=== PATIENT | male | born 1950 | race Caucasian/White ===

== ENCOUNTER 2023-04-02 07:31 | Inpatient (IN) ==
--- NOTE | 2023-04-02 07:57 | Emergency Department Note ---
ED Provider Note History of Present Illness Chief Complaint: Infection Stated Complaint: INFECTION ON LEFT FOOT NOT RESPONDING TO MEDS Time Seen by Provider: 04/02/23 07:38 Source: patient Mode of arrival: ambulatory Limitations: no limitations This patient is a 73-year-old male who presents to the emergency department for evaluation of an infection in his left second toe. Patient has been dealing with this for over 2 weeks. He states that he initially had a blister on the toe which he peeled off and then it became infected. He saw his PCP and was put on doxycycline, which he has been taking since then. He first had an x-ray and then an MRI, which showed osteomyelitis. They wanted to set him up with orthopedics or podiatry and he was able to make a podiatry appointment with Dr. Awad in [place] for this coming . However, patient and his state that today the toe seems to be more red and swollen and they were not comfortable waiting until this appointment. Patient denies any fever/chills or systemic symptoms. He has chronic neuropathy of his lower extremities. He is prediabetic. He denies any pain other than the normal pain from his neuropathy. He does have a history of DVT in the left lower extremity and is anticoagulated on Coumadin. Home Medications Medication Instructions Recorded Confirmed Type atenolol 100 mg tablet 100 mg PO DAILY 04/02/23 04/02/23 History gabapentin 300 mg capsule 300 mg PO DAILY 04/02/23 04/02/23 History hydrochlorothiazide 25 mg tablet 25 mg PO DAILY 04/02/23 04/02/23 History levothyroxine 137 mcg tablet 137 mcg PO DAILY 04/02/23 04/02/23 History warfarin 5 mg tablet 5 mg PO SUMOTUTHFRSA 04/02/23 04/02/23 History warfarin 5 mg tablet 7.5 mg PO WE 04/02/23 04/02/23 History Allergies Allergy/AdvReac Type Severity Reaction Status Date / Time No Known Allergies Allergy Unknown Unverified 11/16/03 06:48 Past Med/Surg History Medical History History of DVT (deep vein thrombosis) Hypertension Hypothyroidism Leukopenia Neuropathy Pre-diabetes Thrombocytopenia Surgical History History of appendectomy History of ventral hernia repair Social History Smoking Status: Former smoker Tobacco Type: Cigarettes Do You Dip or Chew Tobacco: No; Hx Alcohol Use: Yes Alcohol type: hard liquor Alcohol type Comment: 2 drink s/day Hx Substance Use: No Preferred Language: Kyrgyz Communication Ability: Effective Land Clearer Required: No Beliefs That Will Affect Care: None Current Living Situation: Spouse Other Information That Helps Us Care for You: No Feels Safe at Home: Yes Safety Concerns: Feels Safe At This Time Assistive Devices: None Physical Exam Vital Signs Vital Signs - 24 hr 04/02/23 07:34 04/02/23 07:56 04/02/23 08:04 Temperature 36.6 C Temperature Source Temporal Artery Scan Pulse Rate 48 L 48 L Pulse Rate from SpO2 Sensor Respiratory Rate 16 Blood Pressure 144/77 H Blood Pressure Mean 99 Pulse Oximetry 97 98 Oxygen Delivery Method Room Air Sepsis Recent Fever Within 48 Hours No Sepsis New/Unexplained Change in Mental Status N/A Sepsis Action Taken by Nursing No Action Required 04/02/23 07:55 04/02/23 08:00 04/02/23 08:00 Temperature Temperature Source Pulse Rate 49 L 49 L Pulse Rate from SpO2 Sensor 49 L 49 L Respiratory Rate 20 15 Blood Pressure 136/74 134/71 134/71 Blood Pressure Mean 94 88 92 Pulse Oximetry 96 96 Oxygen Delivery Method Room Air Room Air Sepsis Recent Fever Within 48 Hours Sepsis New/Unexplained Change in Mental Status Sepsis Action Taken by Nursing 04/02/23 08:30 04/02/23 09:00 04/02/23 09:30 Temperature Temperature Source Pulse Rate 46 L 46 L 44 L Pulse Rate from SpO2 Sensor 46 L 46 L 45 L Respiratory Rate 17 19 17 Blood Pressure 127/77 132/78 122/77 Blood Pressure Mean 93 96 92 Pulse Oximetry 98 95 96 Oxygen Delivery Method Room Air Room Air Room Air Sepsis Recent Fever Within 48 Hours Sepsis New/Unexplained Change in Mental Status Sepsis Action Taken by Nursing 04/02/23 10:00 Temperature Temperature Source Pulse Rate 45 L Pulse Rate from SpO2 Sensor 45 L Respiratory Rate 19 Blood Pressure 141/80 H Blood Pressure Mean 100 Pulse Oximetry 96 Oxygen Delivery Method Room Air Sepsis Recent Fever Within 48 Hours Sepsis New/Unexplained Change in Mental Status Sepsis Action Taken by Nursing VITALS: Vitals are noted on the nurse's note and reviewed by myself. GENERAL: This is a 73-year-old male, in no acute distress, well-developed well- nourished. EYES: Pupils equal round and reactive to light and accommodation. MOUTH: Mucous membranes moist. HEART: Regular rate and rhythm without murmurs gallops or rubs. LUNGS: Clear to auscultation bilaterally without wheezes, rales or rhonchi. EXTREMITIES: The left second toe is diffusely edematous with an erythematous/purple discoloration. There is an ulceration to the distal aspect of the toe. NEURO: Patient was alert and oriented to person place and time. Decreased tensile sensation over the lower extremities. Course Administered Medications Discontinued Medications Cefepime HCl (Maxipime) 2,000 mg in 20 mls @ 5 mls/min IV NOW STA Stop: 04/02/23 09:15 Last Admin: 04/02/23 09:57 Dose: 5 mls/min Documented By: ISIAH Vancomycin HCl 2,000 mg/ (Sodium Chloride) 540 mls @ 200 mls/hr IV NOW ONE Stop: 04/02/23 11:53 Last Admin: 04/02/23 10:09 Dose: 200 mls/hr Documented By: ISIAH Medical Decision Making Differential Diagnosis Differential diagnosis includes cellulitis, abscess, osteomyelitis, among others. Medical Records Attestation: I reviewed the patient's medical records. Additional Comments: [facility] records reviewed - MRI shows osteomyelitis Home Medications was personally reviewed by me Laboratory Data Attestation: I reviewed the patient's lab results. 04/02/23 07:52 04/02/23 07:52 Lab Results 04/02/23 04/02/23 04/02/23 Range/Units 07:52 07:52 07:52 WBC 3.84 L (4.8-10.8) K/ul RBC 4.04 L (4.70-6.10) M/uL Hgb 14.0 (14.0-18.0) g/dl Hct 39.7 L (42.0-52.0) % MCV 98.3 (80.0-100.0) fL MCH 34.7 H (25.0-34.0) pg MCHC 35.3 (32.0-36.0) g/dL RDW Std Deviation 46.6 H (36.4-46.3) fL RDW Coeff of Kathleen 13.0 (11.5-14.5) % Plt Count 126 L (130-400) K/uL MPV 10.1 (9.4-12.4) fL Immature Gran % (Auto) 0.3 % Neut % (Auto) 59.6 % Lymph % (Auto) 22.9 % Nobles % (Auto) 14.8 % Eos % (Auto) 2.1 % Baso % (Auto) 0.3 % Neut # (Auto) 2.29 (1.40-6.50) K/uL Lymph # (Auto) 0.88 L (1.2-3.4) K/uL Nobles # (Auto) 0.57 (0.11-0.59) K/uL Eos # (Auto) 0.08 (0-0.50) K/uL Baso # (Auto) 0.01 (0-0.2) K/uL Immature Gran # (Auto) 0.01 (0.01-0.20) K/uL PT 21.6 H (9.0-12.0) Seconds INR 2.1 H (0.9-1.1) Sodium 135 L (136-145) mmol/L Potassium 3.9 (3.5-5.1) mmol/L Chloride 102 (98-107) mmol/L Carbon Dioxide 26 (21-32) mmol/L Anion Gap 7 (3-11) BUN 17 (6-23) mg/dl Creatinine 1.24 (0.6-1.4) mg/dl Est Cr Clr Drug Dosing 63.0 ml/min Est GFR ( Amer) 65.5 ml/min Est GFR (Non-Af Amer) 56.5 ml/min BUN/Creatinine Ratio 13.7 (10-20) Glucose 136 H (70-99(Fasting)) mg/dl Lactate (0.4-2.0) mmol/L Calcium 8.8 (8.6-10.3) mg/dl Total Bilirubin 0.8 (0.2-1.0) mg/dl AST 28 (13-39) U/L ALT 21 (7-52) U/L Alkaline Phosphatase 57 (34-104) U/L C-Reactive Protein 2.44 H (0-0.5) mg/dl Total Protein 7.0 (6.0-8.3) gm/dl Albumin 3.9 (3.4-5.0) gm/dl Globulin 3.1 (2.5-4.0) gm/dl Albumin/Globulin Ratio 1.3 (0.9-2) SARS-CoV-2, RNA, NAAT (NEGATIVE) 04/02/23 04/02/23 Range/Units 07:53 07:56 WBC (4.8-10.8) K/ul RBC (4.70-6.10) M/uL Hgb (14.0-18.0) g/dl Hct (42.0-52.0) % MCV (80.0-100.0) fL MCH (25.0-34.0) pg MCHC (32.0-36.0) g/dL RDW Std Deviation (36.4-46.3) fL RDW Coeff of Kathleen (11.5-14.5) % Plt Count (130-400) K/uL MPV (9.4-12.4) fL Immature Gran % (Auto) % Neut % (Auto) % Lymph % (Auto) % Nobles % (Auto) % Eos % (Auto) % Baso % (Auto) % Neut # (Auto) (1.40-6.50) K/uL Lymph # (Auto) (1.2-3.4) K/uL Nobles # (Auto) (0.11-0.59) K/uL Eos # (Auto) (0-0.50) K/uL Baso # (Auto) (0-0.2) K/uL Immature Gran # (Auto) (0.01-0.20) K/uL PT (9.0-12.0) Seconds INR (0.9-1.1) Sodium (136-145) mmol/L Potassium (3.5-5.1) mmol/L Chloride (98-107) mmol/L Carbon Dioxide (21-32) mmol/L Anion Gap (3-11) BUN (6-23) mg/dl Creatinine (0.6-1.4) mg/dl Est Cr Clr Drug Dosing ml/min Est GFR ( Amer) ml/min Est GFR (Non-Af Amer) ml/min BUN/Creatinine Ratio (10-20) Glucose (70-99(Fasting)) mg/dl Lactate 1.7 (0.4-2.0) mmol/L Calcium (8.6-10.3) mg/dl Total Bilirubin (0.2-1.0) mg/dl AST (13-39) U/L ALT (7-52) U/L Alkaline Phosphatase (34-104) U/L C-Reactive Protein (0-0.5) mg/dl Total Protein (6.0-8.3) gm/dl Albumin (3.4-5.0) gm/dl Globulin (2.5-4.0) gm/dl Albumin/Globulin Ratio (0.9-2) SARS-CoV-2, RNA, NAAT NEGATIVE (NEGATIVE) MDM Narrative Continuous cable layer: Order was placed for continuous cable layer. Patient was placed on the cable layer. Patient was noted to be in sinus bradycardia at an initial rate of 47 bpm. The patient is a 73-year-old male who presents today complaining of pain and swelling in his left second toe. The toe is diffusely edematous with some erythema extending up onto the foot. He had an outpatient MRI which showed osteomyelitis. Patient has been on 2 weeks of antibiotics with worsening symptoms. At this time I do feel that he warrants admission. His labs are unremarkable, elevated CRP consistent with infection. Lactate is not elevated. Patient was given initial doses of cefepime and [facility]comycin [facility] Impression Osteomyelitis of second toe of left foot Discharge Plan Visit Data Chief Complaint: Infection Stated Complaint: INFECTION ON LEFT FOOT NOT RESPONDING TO MEDS ED Provider: Mary Concepcion ED Midlevel Provider: Lamar Schmidt Discharge Problem: Osteomyelitis of second toe of left foot Patient Disposition: Admitted As Inpatient Discharge Instructions Interventions: ED Discharge Assessment Last Done: 04/02/23 11:15
[2023-04-02 08:20] LABS: Basophils # (auto) 0.01 K/uL (0-0.2); Basophils % (auto) 0.3 %; Eosinophils # (auto) 0.08 K/uL (0-0.50); Eosinophils % (auto) 2.1 %; Hematocrit (blood only) 39.7 % (42.0-52.0); Immature Granulocytes # (auto) 0.01 K/uL (0.01-0.20); Immature Granulocytes % (auto) 0.3 %; Lymphocytes # (auto) 0.88 K/uL (1.2-3.4); Lymphocytes % (auto) 22.9 %; Mean Corpuscular Hemoglobin 34.7 pg (25.0-34.0); Mean Corpuscular Hgb Conc 35.3 g/dL (32.0-36.0); Mean Corpuscular Volume 98.3 fL (80.0-100.0); Mean Platelet Volume 10.1 fL (9.4-12.4); Monocytes # (auto) 0.57 K/uL (0.11-0.59); Monocytes % (auto) 14.8 %; Neutrophils # (auto) 2.29 K/uL (1.40-6.50); Neutrophils % (auto) 59.6 %; Platelet Count 126 K/uL (130-400); RDW Standard Deviation 46.6 fL (36.4-46.3); Red Blood Count 4.04 M/uL (4.70-6.10); White Blood Count 3.84 K/ul (4.8-10.8)
[2023-04-02 08:34] LABS: Albumin Globulin Ratio 1.3 (0.9-2); Albumin Level 3.9 gm/dl (3.4-5.0); BUN Creatinine Ratio 13.7 (10-20); Bilirubin,Total 0.8 mg/dl (0.2-1.0); C Reactive Protein 2.44 mg/dl (0-0.5); Calcium 8.8 mg/dl (8.6-10.3); Est GFR (African American) 65.5 ml/min; Est GFR (Non-African American) 56.5 ml/min; Globulin 3.1 gm/dl (2.5-4.0); Potassium 3.9 mmol/L (3.5-5.1)
[2023-04-02 08:48] LABS: INR 2.1 (0.9-1.1); Prothrombin Time 21.6 Seconds (9.0-12.0)
[2023-04-02] MEDS ORDERED: VANCOMYCIN HCL 2,000 MG in SODIUM CHLORIDE 0.9% 500 ML IV ONE (09:12)
[2023-04-02] MEDS ORDERED: CEFEPIME 2,000 MG/20 ML VIAL IV STA (09:12)
[2023-04-02] MEDS ORDERED: VANCOMYCIN CONSULT ACTIVE PRN (09:12)
--- NOTE | 2023-04-02 11:48 | History & Physical Report ---
Date of Service April 02, 2023 Assessment & Plan (1) Osteomyelitis: Plan: Admit to [facility] Patient presenting from home for evaluation of worsening left toe wound, redness, swelling. Patient seen by PCP on 03/21 and placed on doxycycline. Seen in follow-up on 03/23 and MRI was ordered. Left foot MRI performed 03/26/2023 showing findings consistent with osteomyelitis of the 2nd distal phalanx, also involving the 2nd middle phalanx to a lesser degree. Consults were made with infectious disease and orthopedics. It was advised that patient see podiatry for wound debridement and/or amputation. Due to increased redness and swelling, patient presented to the ED today prior to podiatry appointment on 04/04. Patient currently afebrile, hemodynamically stable, does not appear septic. Outpatient wound culture grew coag negative staph S/p Vanco and cefepime in the ED, continue with both Podiatry consult, Dr. Jean-Baptiste notified via [facility] Text ID consult (2) Bradycardia: Plan: EKG shows a sinus bradycardia, rate 50 with first-degree block Review of outpatient vitals show the patient's heart rate chronically is in the 40s-50s Will reduce atenolol to 50 mg daily Follow-up EKG in the a.m. (3) Leukopenia: (4) Thrombocytopenia: Plan: History of chronic leukopenia and thrombocytopenia, follows with hematology Dr. Nicole Platelet count stable today at 126K Reviewed antiplatelet antibody panel from 07/[address] 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 -- ok to receive heparin products if needed (5) Neuropathy: Plan: Continue gabapentin (6) History of DVT (deep vein thrombosis): Plan: On Coumadin, INR 2.1 History of DVT in 2014 Will hold Coumadin due to anticipated surgical procedure, no indication for bridging at this time (7) Hypertension: Plan: Continue HCTZ Reducing atenolol dosing as above (8) Pre-diabetes: Plan: Hgb A1c 6.0 02/2023 Glucose 136 on today's labs Monitor glucose on daily labs, provide Novolog if needed (9) Hypothyroidism: Plan: Continue levothyroxine DVT PROPHYLAXIS On Coumadin with INR 2.1, SCDs when INR < 2.0 Patient seen in collaboration with Dr. Kaur. I spent a total of 75 minutes coordinating, documenting, and providing care for this patient excluding time spent in the performance of separately billed services. This included personally reviewing all current laboratories and imaging studies, medication reconciliation, outpatient chart review, and discussion with specialists. History of Present Illness Chief Complaint: Left toe wound Primary Care Provider: Salima Arevalo PA-C 73-year-old male with PMH hypothyroidism, prediabetes, HTN, peripheral neuropathy, chronic thrombocytopenia and leukopenia, history of DVT anticoagulated on Coumadin, and other problems listed below who presents to the ED for evaluation of a left toe wound. History obtained from the patient and review of outpatient PCP and hematology records. Patient states that about 2 weeks ago, he developed a blister or callus on the bottom of his left second toe. Patient states that he peeled the skin off of the bottom of his left second toe. Then developed increased redness and swelling. Patient seen by PCP on 03/21 and placed on doxycycline. Seen in follow-up on 03/23 and MRI was ordered. Left foot MRI performed 03/26/2023 showing findings consistent with osteomyelitis of the 2nd distal phalanx, also involving the 2nd middle phalanx to a lesser degree. Consults were made with infectious disease and orthopedics. It was advised that patient see podiatry for wound debridement and/or amputation. Due to increased redness and swelling, patient presented to the ED today prior to podiatry appointment on 04/04. Patient reports chronic neuropathy to both feet. History of prediabetes. He denies fevers and chills. No chest pain or shortness of breath. Denies lightheadedness, dizziness, diaphoresis, syncopal events. No abdominal pain, nausea, vomiting, diarrhea. Denies urinary symptoms. In the ED today, patient is hemodynamically stable. Labs show mild leukopenia and thrombocytopenia, WBC 3.8K platelet 126K. Patient was given IV cefepime and IV Vanco. Allergies Allergy/AdvReac Type Severity Reaction Status Date / Time No Known Allergies Allergy Unknown Unverified 11/16/03 06:48 Home Medications Medication Instructions Recorded Confirmed Type atenolol 100 mg tablet 100 mg PO DAILY 04/02/23 04/02/23 History gabapentin 300 mg capsule 300 mg PO DAILY 04/02/23 04/02/23 History hydrochlorothiazide 25 mg tablet 25 mg PO DAILY 04/02/23 04/02/23 History levothyroxine 137 mcg tablet 137 mcg PO DAILY 04/02/23 04/02/23 History warfarin 5 mg tablet 5 mg PO RADHATNELLY 04/02/23 04/02/23 History warfarin 5 mg tablet 7.5 mg PO WE 04/02/23 04/02/23 History Past Med/Surg History Medical History History of DVT (deep vein thrombosis) Hypertension Hypothyroidism Leukopenia Neuropathy Pre-diabetes Thrombocytopenia Surgical History History of appendectomy History of ventral hernia repair Social History Smoking Status: Former smoker Tobacco Type: Cigarettes Do You Dip or Chew Tobacco: No; Hx Alcohol Use: Yes Alcohol type: hard liquor Alcohol type Comment: 2 drinks/day Hx Substance Use: No Preferred Language: Syriac Communication Ability: Effective Jacker Feeder Required: No Beliefs That Will Affect Care: None Current Living Situation: Spouse Other Information That Helps Us Care for You: No Feels Safe at Home: Yes Safety Concerns: Feels Safe At This Time Assistive Devices: None Review of Systems Review of Systems: ROS per HPI, all other systems reviewed and negative Physical Exam Constitutional: WD/WN, vitals as above no acute distress ENMT: external ear and nose normal, oropharynx normal Respiratory: normal respiratory effort, lungs clear to auscultation Cardiovascular: Rate/Rhythm: regular rhythm and + bradycardic Vessels: normal peripheral pulses Extremities: + edema (+2 edema LLE) Gastrointestinal (Abdomen): normal bowel sounds, soft, nontender, no hepatosplenomegaly Musculoskeletal: no cyanosis or clubbing, extremities motor strength 5/5 Skin: no rashes, warm and dry open wound noted to end of left 2nd toe with some bloody drainage present, associated erythema and edema Neurologic: PERRL, EOMI, accommodation nl, no face palsy, no dysarthria Psychiatric: A+Ox3, euthymic affect Results & Data Results & Data Vital Signs (Past 12 Hours) Vital Signs Temp Pulse Resp BP Pulse Ox O2 Del Method 04/02/23 11:00 45 L 15 131/77 96 Room Air 04/02/23 10:30 45 L 21 153/84 H 97 Room Air 04/02/23 10:00 45 L 19 141/80 H 96 Room Air 04/02/23 09:30 44 L 17 122/77 96 Room Air 04/02/23 09:00 46 L 19 132/78 95 Room Air 04/02/23 08:30 46 L 17 127/77 98 Room Air 04/02/23 08:00 49 L 15 134/71 96 Room Air 04/02/23 08:00 134/71 04/02/23 07:55 49 L 20 136/74 96 Room Air 04/02/23 08:04 98 Room Air 04/02/23 07:56 48 L 04/02/23 07:34 36.6 C 48 L 16 144/77 H 97 Laboratory Results Short CBC 04/02/23 Range/Units 07:52 WBC 3.84 L (4.8-10.8) K/ul Hgb 14.0 (14.0-18.0) g/dl Hct 39.7 L (42.0-52.0) % Plt Count 126 L (130-400) K/uL BMP 04/02/23 07:52 Sodium 135 L Potassium 3.9 Chloride 102 Carbon Dioxide 26 BUN 17 Creatinine 1.24 Glucose 136 H Calcium 8.8 Liver Function 04/02/23 Range/Units 07:52 Total Bilirubin 0.8 (0.2-1.0) mg/dl AST 28 (13-39) U/L ALT 21 (7-52) U/L Alkaline Phosphatase 57 (34-104) U/L Albumin 3.9 (3.4-5.0) gm/dl Diagnostic Findings Left foot MRI performed at [facility] on 03/26/2023: FINDINGS Diffuse enhancing bone marrow edema throughout the distal phalanx of the 2nd toe, with loss T1 marrow signal intensity. These findings are also seen in the middle phalanx to a lesser degree. Appearance is consistent with osteomyelitis. There is also apparent high signal intensity in the distal phalanx of the 3rd toe on the fat-saturated sequences. There is no signal abnormality in the marrow on the STIR sequence, nor is there appreciable loss of T1 marrow signal. As such, this is most likely related to inhomogeneous fat saturation. Diffuse fatty atrophy of the intrinsic forefoot musculature. No discrete fluid collection/abscess. Visualized tendons are grossly intact. IMPRESSION IMPRESSION Findings consistent with osteomyelitis of the 2nd distal phalanx, also involving the 2nd middle phalanx to a lesser degree. Supervising Physician Co-Signing Physician Notes I have seen and examined the patient and have discussed the case with the provider above. I agree with the assessment and plan as stated with the following exceptions. 73 yo M presents for treatment of osteomyelitis of the left foot. His left lower leg his more swollen and warm to touch when compared wtih the right despite recent outpatient doxycycline. He is not septic and denies any pain 2/2 chronic neuropathy. He reports two weeks ago pulling off a piece of skin which subsequently became infected. He was treated with 10 days of doxycycline and topical silver and two days later on following, there was improvement. However, the x-ray from 03/21 revealed possible osteomyelitis so an MRI was ordered and performed 03/26 revealing osteomyelitis of the second distal phalanx, also involving the second middle phalynx to a lesser degree. An outpatient ID chart review was performed with recommendation to refer for amputation iof the to as antibiotic therapy without amputation was thought to be likely to fail. He has been started on IV vancomycin and IV cefepime in the ER. Hemodynamically stable and afebrile in NAD. WNWD and mentating clearly. CV exam reveals S1/2 heard without murmurs, regular rate and rhythm heard. Lungs CTAB. Abdomen soft NTND. Workup reveals leukopenia 3.84, PLT 126, INR 2.1, Chem panel WNL and CRP 2.44. CXR reveals no acute process. Blood cultures are pending. EKG reveals sinus bradycardia with 1AVB. 1. Left toe osteomyelitis 2. Sinus bradycardia 3. ITP 4. chronic anticoagulation, h/o dVT Admit to medicine and consult ID and podiatry. Start Vanc/cefepime for now. Defer bone biopsy to podiatry. Blood cultures pending. Agree with de- escalating atenolol. Holding coumadin given upcoming procedure. Sindy [facility]aur [facility]
--- NOTE | 2023-04-02 12:02 | XRay Report ---
XR chest 1V portable HISTORY: 73 years-old Male pre op preoperative exam. No acute chest complaints COMPARISON: CT abdomen and pelvis 08/08/2020 TECHNIQUE: AP view of the chest FINDINGS: Cardiac silhouette is mildly enlarged. No pneumothorax, pleural effusion, airspace consolidation or p ulmonary edema. Degenerative changes of the shoulders and spine. IMPRESSION: No acute process. ACT 112: Negative or not required by law. The above report was generated using voice recognition software. It may contain grammatical, syntax o r spelling errors. Electronically signed by: Beni Olsen M.D. 04/02/2023 12:00 PM
--- NOTE | 2023-04-02 12:12 | Communication Note ---
Date of Service: April 02, 2023 ATTENDING ADDENDUM: 73 yo M presents for treatment of osteomyelitis of the left foot. His left lower leg his more swollen and warm to touch when compared wtih the right despite recent outpatient doxycycline. He is not septic and denies any pain 2/2 chronic neuropathy. He reports two weeks ago pulling off a piece of skin which subsequently became infected. He was treated with 10 days of doxycycline and topical silver and two days later on following, there was improvement. However, the x-ray from 03/21 revealed possible osteomyelitis so an MRI was ordered and performed 03/26 revealing osteomyelitis of the second distal phalanx, also involving the second middle phalynx to a lesser degree. An outpatient ID chart review was performed with recommendation to refer for amputation iof the to as antibiotic therapy without amputation was thought to be likely to fail. He has been started on IV vancomycin and IV cefepime in the ER. Hemodynamically stable and afebrile in NAD. WNWD and mentating clearly. CV exam reveals S1/2 heard without murmurs, regular rate and rhythm heard. Lungs CTAB. Abdomen soft NTND. Workup reveals leukopenia 3.84, PLT 126, INR 2.1, Chem panel WNL and CRP 2.44. CXR reveals no acute process. Blood cultures are pending. EKG reveals sinus bradycardia with 1AVB. 1. Left toe osteomyelitis 2. Sinus bradycardia 3. ITP 4. chronic anticoagulation, h/o dVT Admit to medicine and consult ID and podiatry. Start Vanc/cefepime for now. Defer bone biopsy to podiatry. Blood cultures pending. Agree with de-escalatin g atenolol. Holding coumadin given upcoming procedure. Sindy Kaur DO [facility]
[2023-04-02] MEDS ORDERED: ACETAMINOPHEN 325 MG TAB PO PRN (12:19)
--- NOTE | 2023-04-02 13:52 | Pharmacy Report ---
Pharmacy PK ABX Note - Date of Service April 02, 2023 - Assessment and Plan Assessment 73 year old M receiving vancomycin/cefepime for treatment of osteomyelitis. Pertinent microbiologic data includes: blood and toe culture currently pending. Day # 1 of antimicrobial therapy. Plan Vancomycin * Loading dose: 2000 mg IV x 1 * Maintenance dose: 1500 mg IV every 18 hours * Regimen is predicted to achieve target AUC/BRITTNEY of 400-600 mg/L.hr * Trough level ordered for: 04/04/23 Pharmacy will continue to follow and will adjust dose/frequency as necessary. Thank you. Pharmacy has transitioned to AUC monitoring for vancomycin. AUC/BRITTNEY is the preferred PK/PD target and is associated with decreased risk of nephrotoxicity compared to traditional trough targets.
--- NOTE | 2023-04-02 14:33 | Electrocardiogram Report ---
Test Reason : Blood Pressure : / mmHG Vent. Rate : 050 BPM Atrial Rate : 050 BPM P-R Int : 260 ms QRS Dur : 078 ms QT Int : 432 ms P-R-T Axes : 080 -22 018 degrees QTc Int : 393 ms Sinus bradycardia with 1st degree A-V block Otherwise normal ECG No previous ECGs available Confirmed by Kishan Tompkins ([id number]) on 04/02/2023 12:08:24 PM Referred By: REFERRED SELF Confirmed By:Heber Tompkins
[2023-04-02] MEDS: CEFEPIME 2,000 MG in SYRINGE 0 ML IV SCH (17:16)
[2023-04-02] MEDS: VANCOMYCIN HCL 1,500 MG in SODIUM CHLORIDE 0.9% 500 ML IV SCH (20:11)
--- NOTE | 2023-04-02 22:38 | Orthopedic Consultation ---
Date of Consultation April 02, 2023 Assessment & Plan (1) Osteomyelitis of second toe of left foot: Patient seen, evaluated, and treated Reviewed with Patient MRI results. I was unable to review MRI images as of 04/02/23 and still awaiting file transfer Patient is electing for definitive care with amputation of left second toe at this time. Coumadin will be discontinued for anticipated left second toe amputation on 04/04/23. Will continue to discuss planned procedure with Patient and as Patient does admit to anxiety about procedure. Thank you for allowing me to participate in the care of this Patient. (2) Osteomyelitis: History of Present Illness Attending Physician: Sindy Kaur, DO History of Present Illness Patient is a type II diabetic, 73-year-old male who is seen at bedside for left second toe osteomyelitis. Patient has a past medical history significant for hypothyroidism, prediabetes, HTN, peripheral neuropathy, chronic thrombocytopenia and leukopenia, history of DVT anticoagulated on Coumadin. Patient states that about 2 weeks ago, he developed a blister or callus on the bottom of his left second toe. Patient states that he peeled the skin off of the bottom of his left second toe. Then developed increased redness and swelling. Patient seen by PCP on 03/21 and placed on doxycycline. Seen in follow-up on 03/23 and MRI was ordered. Left foot MRI performed 03/26/2023 showing findings consistent with osteomyelitis of the 2nd distal phalanx, also involving the 2nd middle phalanx to a lesser degree. Consults were made with infectious disease and orthopedics. It was advised that patient see podiatry for wound debridement and/or amputation. Due to increased redness and swelling, patient presented to the [facility] ED today prior to podiatry appointment on 04/04. Patient reports chronic neuropathy to both feet. Labs show mild leukopenia and thrombocytopenia, WBC 3.8K platelet 126K. Patient was given IV cefepime and IV Vanco. Allergies Allergy/AdvReac Type Severity Reaction Status Date / Time No Known Allergies Allergy Unknown Unverified 11/16/03 06:48 Home Medications Medication Instructions Recorded Confirmed Type atenolol 100 mg tablet 100 mg PO DAILY 04/02/23 04/02/23 History gabapentin 300 mg capsule 300 mg PO DAILY 04/02/23 04/02/23 History hydrochlorothiazide 25 mg tablet 25 mg PO DAILY 04/02/23 04/02/23 History levothyroxine 137 mcg tablet 137 mcg PO DAILY 04/02/23 04/02/23 History warfarin 5 mg tablet 5 mg PO RADHATJEFFRYSA 04/02/23 04/02/23 History warfarin 5 mg tablet 7.5 mg PO WE 04/02/23 04/02/23 History Patient History Medical History History of DVT (deep vein thrombosis) Hypertension Hypothyroidism Leukopenia Neuropathy Pre-diabetes Thrombocytopenia Surgical History History of appendectomy History of ventral hernia repair Social History Smoking Status: Former smoker Tobacco Type: Cigarettes Do You Dip or Chew Tobacco: No; Hx Alcohol Use: Yes Alcohol type: hard liquor Alcohol type Comment: 2 drinks/day Hx Substance Use: No Preferred Language: Finnish Communication Ability: Effective Licensed Prosthetist Required: No Beliefs That Will Affect Care: None Current Living Situation: Spouse Other Information That Helps Us Care for You: No Feels Safe at Home: Yes Safety Concerns: Feels Safe At This Time Assistive Devices: None Review of Systems Review of Systems: All systems reviewed & are unremarkable except as noted in HPI & below Physical Exam Constitutional: cooperative and comfortable Eyes: normal visual hardwick by confrontation Neck: trachea midline Respiratory: normal respiratory effort Cardiovascular: Rate/Rhythm: regular rate and regular rhythm Vessels: posterior tibial pulses present and dorsalis pedis pulses present Musculoskeletal: Extremities: extremities normal to inspection Skin: + ulcer (Left second distal toe) Neurologic: moves all extremities (Loss of epicritic sensation) Psychiatric: Orientation: alert and oriented x 3 Results & Data Vital Signs (Past 12 Hours) Vital Signs Temp Pulse Pulse Resp BP BP Pulse Ox 04/02/23 20:13 36.7 C 53 L 18 149/78 H 96 04/02/23 15:32 36.9 C 49 L 16 127/71 95 04/02/23 12:21 36.9 C 45 L 16 143/80 H 96 04/02/23 11:00 45 L 15 131/77 96 04/02/23 10:30 45 L 21 153/84 H 97 O2 Del Method 04/02/23 20:13 Room Air 04/02/23 15:32 Room Air 04/02/23 12:21 Room Air 04/02/23 11:00 Room Air 04/02/23 10:30 Room Air
[2023-04-03] MEDS: CEFEPIME 2,000 MG in SYRINGE 0 ML IV SCH ×3 (01:47→18:18)
[2023-04-03] MEDS: LEVOTHYROXINE SODIUM 137 MCG TABLET PO SCH (05:44)
[2023-04-03 07:46] LABS: Hematocrit (blood only) 39.9 % (42.0-52.0); Mean Corpuscular Hemoglobin 34.5 pg (25.0-34.0); Mean Corpuscular Hgb Conc 35.1 g/dL (32.0-36.0); Mean Corpuscular Volume 98.3 fL (80.0-100.0); Mean Platelet Volume 9.9 fL (9.4-12.4); Platelet Count 122 K/uL (130-400); RDW Coefficient of Variation 12.9 % (11.5-14.5); RDW Standard Deviation 46.8 fL (36.4-46.3); Red Blood Count 4.06 M/uL (4.70-6.10); White Blood Count 3.26 K/ul (4.8-10.8)
[2023-04-03 07:55] LABS: BUN Creatinine Ratio 14.4 (10-20); Calcium 8.6 mg/dl (8.6-10.3); Creatinine Clr Calc Pharmacy 66.2 ml/min; Est GFR (African American) 69.5 ml/min; Potassium 4.2 mmol/L (3.5-5.1)
[2023-04-03 08:05] LABS: INR 1.8 (0.9-1.1); Prothrombin Time 19.2 Seconds (9.0-12.0)
[2023-04-03] MEDS: ATENOLOL 50 MG TABLET PO SCH (08:29)
[2023-04-03] MEDS: GABAPENTIN 300 MG CAP PO SCH (08:29)
[2023-04-03] MEDS: hydroCHLOROthiazide 25 MG TAB PO SCH (08:29)
[2023-04-03 12:00] LABS: Lyme Ab IgG w/WB Rflx Negative (Negative); Lyme Ab IgM w/WB Rflx Negative (Negative)
--- NOTE | 2023-04-03 14:32 | Hospitalist Progress Note ---
Date of Service April 03, 2023 Assessment & Plan (1) Osteomyelitis: Plan: This is a 73-year-old male who has significant past medical history of HTN, history of DVT on warfarin, CKD stage III, hypothyroidism, prediabetes, leukopenia and thrombocytopenia who presented to ED secondary to worsening left second toe wound. Patient presenting from home for evaluation of worsening left toe wound, redness, swelling. Patient seen by PCP on 03/21 and placed on doxycycline. Seen in follow-up on 03/23 and MRI was ordered. Left foot MRI performed 03/26/2023 showing findings consistent with osteomyelitis of the 2nd distal phalanx, also involving the 2nd middle phalanx to a lesser degree. Consults were made with infectious disease and orthopedics. It was advised that patient see podiatry for wound debridement and/or amputation. Due to increased redness and swelling, patient presented to the ED today prior to podiatry appointment on 04/04. Outpatient wound culture grew coag negative staph S/p Vanco and cefepime in the ED, continue with both Podiatry consult - plan for amputation tomorrow ID consult pending Consult anesthesia Chest x-ray no acute process; EKG with marked sinus bradycardia first-degree block, 44 bpm, no ST T wave change Patient with documented heart rates in the 40s dating back to October 2021 He is on metoprolol therapy which has been reduced from 100 mg daily to 50 mg daily. It was held this morning due to bradycardia. Patient admits to being able to tolerate up to 4 METS of activity without chest pain or shortness of breath Medically cleared to undergo amputation (2) Bradycardia: Plan: EKG on admit shows a sinus bradycardia, rate 50 with first-degree block Review of outpatient vitals show the patient's heart rate chronically is in the 40s-50s Will reduce atenolol to 50 mg daily Follow-up EKG in this am. noted (3) Leukopenia: (4) Thrombocytopenia: Plan: History of chronic leukopenia and thrombocytopenia, follows with hematology Dr. Nicole Platelet count stable today at 126K Reviewed antiplatelet antibody panel from 07/[address] 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 -- ok to receive heparin products if needed (5) Neuropathy: Plan: Continue gabapentin (6) History of DVT (deep vein thrombosis): Plan: On Coumadin, INR 1.8 today History of DVT in 2015 Will hold Coumadin due to anticipated surgical procedure, no indication for bridging at this time (7) Hypertension: Plan: will hold hctz tomorrow morning for procedure Reducing atenolol dosing as above (8) Pre-diabetes: Plan: Hgb A1c 6.0 02/2023 Glucose 136 on today's labs Monitor glucose on daily labs, provide Novolog if needed (9) Hypothyroidism: Plan: Continue levothyroxine DVT PROPHYLAXIS On Coumadin with INR 1.8, SCD to RLE Patient seen in collaboration with Dr. Kaur. I spent a total of 50 minutes coordinating, documenting, and providing care for this patient excluding time spent in the performance of separately billed services. This included personally reviewing all current laboratories and imaging studies, medication reconciliation, outpatient chart review, and discussion with specialists. Pt was seen and examined in collaboration with Dr. Alarcon, please see addendum Admission and Anticipated Discharge Date Admission Date: April 02, 2023 Supervising Physician Co-Signing Physician Notes Patient seen and examined at bedside as a follow-up of osteomyelitis of second toe of left foot, patient has been afebrile, warfarin on hold, INR 1.8 today, will repeat INR in a.m., for OR tomorrow per podiatry. On exam, patient was sitting up in bed, on room air, left second toe erythema/tenderness with associated with LLE swelling noted, rest of the examination as above.. I have seen and examined the patient and have discussed the case with the provider above. I agree with the assessment and plan as stated. Subjective Patient was seen and examined in room 354-2. F/U OM. CO L foot swelling but denies faviola pain. Has opted to go with amputation. Denies f/c/s, chest pain, sob, n/v/d, abd pain. Review of Systems Review of Systems: All systems reviewed & are unremarkable except as noted in HPI & below Physical Exam Physical Exam: Gen: WD/WN, NAD, A&O x3 HEENT: Normocephalic, atraumatic, conjunctivae moist, sclerae anicteric, mucous membranes moist. Lung: Clear to Auscultation bilaterally, no wheezes/rales/rhonchi Heart: Regular rate, regular rhythm, no murmurs, rubs, or gallops Abdomen: Soft, NT, ND +BS x 4 Extremities: LLE edema, L 2nd toe with discoloration, pedal pulse +1, + ulceration Skin: Warm, no rash, negative turgor. Results & Data Results & Data Vital Signs (Past 12 Hours) Vital Signs Temp Pulse Resp BP Pulse Ox O2 Del Method 04/03/23 08:30 Room Air 04/03/23 07:42 36.7 C 42 L 17 135/75 97 Room Air Laboratory Results Short CBC 04/03/23 Range/Units 07:14 WBC 3.26 L (4.8-10.8) K/ul Hgb 14.0 (14.0-18.0) g/dl Hct 39.9 L (42.0-52.0) % Plt Count 122 L (130-400) K/uL BMP 04/03/23 07:14 Sodium 136 Potassium 4.2 Chloride 105 Carbon Dioxide 26 BUN 17 Creatinine 1.18 Glucose 110 H Calcium 8.6 Medications Administered Current Inpatient Medications Acetaminophen (Acetaminophen 325 Mg Tab) 650 mg PO Q4H PRN PRN Reason: pain/fever Stop: 05/02/23 12:18 Atenolol (Atenolol 50 Mg Tablet) 50 mg PO DAILY MARIAM Stop: 05/03/23 08:59 Last Admin: 04/03/23 08:29 Dose: Not Given Gabapentin (Gabapentin 300 Mg Cap) 300 mg PO DAILY MARIAM Stop: 05/03/23 08:59 Last Admin: 04/03/23 08:29 Dose: 300 mg Hydrochlorothiazide (Hydrochlorothiazide 25 Mg Tab) 25 mg PO DAILY MARIAM Stop: 05/03/23 08:59 Last Admin: 04/03/23 08:29 Dose: 25 mg Cefepime HCl 2,000 mg/ Syringe 20 mls @ 5 mls/min IV Q8H MARIAM; Protocol Stop: 05/14/23 17:59 Last Admin: 04/03/23 11:29 Dose: 5 mls/min Vancomycin HCl 1,500 mg/ (Sodium Chloride) 530 mls @ 200 mls/hr IV Q18H MARIAM; Protocol Stop: 05/14/23 19:59 Last Infusion: 04/02/23 22:50 Dose: Infused Levothyroxine Sodium (Levothyroxine Sodium 137 Mcg Tablet) 137 mcg PO DAILYBB MARIAM Stop: 05/03/23 06:29 Last Admin: 04/03/23 05:44 Dose: 137 mcg Miscellaneous Information (Vancomycin Consult Active) 1 each N/A UD PRN PRN Reason: Consult Stop: 05/02/23 09:11
[2023-04-03] MEDS: VANCOMYCIN HCL 1,500 MG in SODIUM CHLORIDE 0.9% 500 ML IV SCH (15:12)
--- NOTE | 2023-04-03 22:08 | Orthopedic Progress Note ---
Date of Service April 03, 2023 Assessment & Plan (1) Osteomyelitis of second toe of left foot: Plan: Patient seen, evaluated, and treated Patient has opted for left second toe amputation. Left foot MRI performed 03/26/2023 showing findings consistent with osteomyelitis of the 2nd distal phalanx, also involving the 2nd middle phalanx to a lesser degree. Surgical care is scheduled for 04/04/23 Thank you for allowing me to participate in the care of this Patient. (2) Osteomyelitis: Admission and Anticipated Discharge Date Admission Date: April 02, 2023 Subjective Patient seen and examined at bedside. Patient's is present. Patient has no complaints. Review of Systems Review of Systems: All systems reviewed & are unremarkable except as noted in Subjective Physical Exam Constitutional: cooperative and comfortable Eyes: normal visual hardwick by confrontation Neck: trachea midline Respiratory: normal respiratory effort Cardiovascular: Rate/Rhythm: regular rate and regular rhythm Vessels: posterior tibial pulses present and dorsalis pedis pulses present Musculoskeletal: Extremities: extremities normal to inspection Skin: + ulcer (Left second distal toe) Neurologic: moves all extremities (Loss of epicritic sensation) Psychiatric: Orientation: alert and oriented x 3 Results & Data Vital Signs (Past 12 Hours) Vital Signs Temp Pulse Resp BP Pulse Ox O2 Del Method 04/03/23 14:44 36.5 C 57 L 16 139/72 95 Room Air
[2023-04-04] MEDS: CEFEPIME 2,000 MG in SYRINGE 0 ML IV SCH ×3 (01:53→17:47)
[2023-04-04] MEDS: LEVOTHYROXINE SODIUM 137 MCG TABLET PO SCH (05:24)
[2023-04-04] MEDS ORDERED: VANCOMYCIN LEVEL ONE (07:30)
[2023-04-04] MEDS: VANCOMYCIN HCL 1,500 MG in SODIUM CHLORIDE 0.9% 500 ML IV SCH (08:32)
[2023-04-04] MEDS: hydroCHLOROthiazide 25 MG TAB PO SCH (08:36)
--- NOTE | 2023-04-04 09:22 | Pharmacy Report ---
Pharmacy PK ABX Note - Date of Service April 04, 2023 - Assessment and Plan Assessment 73 year old M receiving vancomycin/cefepime for treatment of L foot osteomyelitis. Left second toe amputation planned for today. Toe culture (04/02) with pin point growth. Plan Vancomycin * Current regimen: 1500 mg IV every 18 hours * Random level obtained 04/04/23 resulted as 11.2 mcg/mL. This is predicted to achieve AUC/BRITTNEY at lower end of goal range. Would like to target higher AUC given bone involvement. * Change to 1750 mg IV every 18 hours * Predicted AUC at steady state: 528 mg/L.hr * Predicted trough at steady state: 15.7 mcg/mL * Will repeat drug level in ~48 hours if patient remains on vanco post amputation Pharmacy will continue to follow and will adjust dose/frequency as necessary. Thank you. Pharmacy has transitioned to AUC monitoring for vancomycin. AUC/BRITTNEY is the preferred PK/PD target and is associated with decreased risk of nephrotoxicity compared to traditional trough targets.
[2023-04-04] MEDS: GABAPENTIN 300 MG CAP PO SCH (11:05)
[2023-04-04] MEDS: ATENOLOL 50 MG TABLET PO SCH (11:05)
[2023-04-04] MEDS ORDERED: HYDROmorphone INJ 2 MG/ML SYR/VIAL IV PRN (11:53)
[2023-04-04] MEDS ORDERED: ePHEDrine sulfate 50 MG/ML AMP IV PRN (11:53)
[2023-04-04] MEDS ORDERED: fentaNYL citrate PF 100 MCG/2 ML VIAL IV PRN (11:53)
[2023-04-04] MEDS ORDERED: ONDANSETRON INJ 2 MG/ML 2 ML VIAL IV PRN (11:53)
[2023-04-04] MEDS ORDERED: ATROPINE SULFATE 0.1 MG/ML 10ML SYR IV PRN (11:53)
--- NOTE | 2023-04-04 11:53 | Anesthesiology Consultation ---
Date of Service April 04, 2023 Assessment & Plan ASA ASA3 Proposed Anesthesia Anesthesia Type: MAC Risk / Benefits Reviewed With: PT / POA / Parent / Guardian, Accepts Plan and Informed Consent Obtained History Surgery Operation Date: 04/04/23 11:50 Proposed Procedures p Left Second Toe Amputation - Dax Jean-Baptiste, DPM, MS Height/Weight Height: 5 ft 11 in Weight: 103.5 kg Allergies Allergy/AdvReac Type Severity Reaction Status Date / Time No Known Allergies Allergy Unknown Unverified 11/16/03 06:48 Medications Home Medications Medication Instructions Recorded Confirmed Last Taken atenolol 100 mg tablet 100 mg PO DAILY 04/02/23 04/02/23 Unknown gabapentin 300 mg capsule 300 mg PO DAILY 04/02/23 04/02/23 Unknown hydrochlorothiazide 25 mg tablet 25 mg PO DAILY 04/02/23 04/02/23 Unknown levothyroxine 137 mcg tablet 137 mcg PO DAILY 04/02/23 04/02/23 Unknown warfarin 5 mg tablet 5 mg PO SUMOTUTHFRSA 04/02/23 04/02/23 Unknown warfarin 5 mg tablet 7.5 mg PO WE 04/02/23 04/02/23 Unknown Active Medications Generic Name Dose Route Start Last Admin Trade Name Freq PRN Reason Stop Dose Admin Atenolol 50 mg 04/03/23 09:00 04/04/23 11:05 Atenolol 50 Mg Tablet PO 05/03/23 08:59 Not Given DAILY MARIAM Gabapentin 300 mg 04/03/23 09:00 04/04/23 11:05 Gabapentin 300 Mg Cap PO 05/03/23 08:59 Not Given DAILY MARIAM Hydrochlorothiazide 25 mg 04/03/23 09:00 04/04/23 08:36 Hydrochlorothiazide 25 Mg Tab PO 05/03/23 08:59 25 mg DAILY MARIAM Administration Cefepime HCl 2,000 mg/ Syringe 20 mls @ 5 mls/min 04/02/23 18:00 04/04/23 01:53 IV 05/14/23 17:59 5 mls/min Q8H MARIAM Administration Protocol Levothyroxine Sodium 137 mcg 04/03/23 06:30 04/04/23 05:24 Levothyroxine Sodium 137 Mcg Tablet PO 05/03/23 06:29 137 mcg DAILYBB MARIAM Administration NPO Date Last Intake of Fluids: 04/03/23 Time Last Intake of Fluids: 18:00 Date Last Intake of Solids: 04/03/23 Time Last Intake of Solids: 21:00 Past Medical History Medical History History of DVT (deep vein thrombosis) Hypertension Hypothyroidism Leukopenia Neuropathy Pre-diabetes Thrombocytopenia Exercise / Class Metabolic Activity II 4-5 Yardwork/Stairs/Walk up hill Past Surgical History Surgical History History of appendectomy History of ventral hernia repair Past Anesthesia History No Hx of Anesthesia Complications and No Family Hx of Anesthesia Complications History of PONV No Hx of PONV and No Hx of Motion Sickness Social History Smoking Status: Former smoker tobacco type: cigarettes Do You Dip or Chew Tobacco: No Hx Alcohol Use: Yes Alcohol type: hard liquor alcohol intake frequency: 0-2 drinks per day Hx Substance Use: No Review of Systems denies fever/cough/ colds/ chest pain/ SOB/ IVETH denies IVETH Physical Exam Vital Signs Last Vital Signs Temp 36.7 C 04/04/23 11:29 Pulse 46 L 04/04/23 11:29 Resp 20 04/04/23 11:29 BP 175/93 H 04/04/23 11:29 Pulse Ox 98 04/04/23 11:29 O2 Del Method Room Air 04/04/23 11:29 ENMT Mouth: no TMJ abnormality and no dentition abnormality Thyromental Distance: > or= 3.5 Finger Breadths Mallampati Class: II Neck + facial hair; neck extension not limited Respiratory normal respiratory effort; no respiratory distress Auscultation: lungs clear to auscultation bilaterally Cardiovascular Rate/Rhythm: regular rate and regular rhythm Neurologic moves all extremities Psychiatric Orientation: alert and oriented x 3 Testing Laboratory Results 04/03/23 07:14 04/03/23 07:14 PT 19.2 Seconds (9.0-12.0) H 04/03/23 07:14 INR 1.8 (0.9-1.1) H 04/03/23 07:14 04/02/23 08:15 Aerobic Blood Culture - Preliminary Blood No growth in Aerobic bottle after 48 hours. Anaerobic Blood Culture - Preliminary No growth in Anaerobic bottle after 48 hours. 04/02/23 07:52 Aerobic Blood Culture - Preliminary Blood No growth in Aerobic bottle after 48 hours. Anaerobic Blood Culture - Preliminary No growth in Anaerobic bottle after 48 hours. 04/02/23 07:53 Gram Stain - Final Toe Wound Culture - Preliminary Pin-point growth present, reincubating.
[2023-04-04] MEDS ORDERED: BUPIVACAINE 0.5 % 5 MG/1 ML MPF 30ML VIAL ONE (11:59)
[2023-04-04] MEDS ORDERED: KETAMINE 50 MG/5 ML SYRINGE ONE (12:01)
--- NOTE | 2023-04-04 12:10 | History & Physical Bridge Note ---
Date of Service April 04, 2023 History & Physical Bridge Note I have examined the patient, reviewed the History & Physical and in the interval since the performance of the History & Physical I have noted the following changes of clinical significance: no changes noted
[2023-04-04] MEDS ORDERED: MIDAZOLAM HCL 1 MG/ML 2ML VIAL ONE (12:17)
[2023-04-04 12:50] LABS: INR 1.5 (0.9-1.1); Prothrombin Time 16.4 Seconds (9.0-12.0)
--- NOTE | 2023-04-04 12:55 | Post Operative Brief Note ---
Immediate Post Op Note v1 Date of Surgery April 04, 2023 Pre & Post Diagnosis Operation Date: 04/04/23 11:50 Pre-Op Diagnosis: Osteomyelitis Post-Op Diagnosis: Osteomyelitis I identified the patient and participated in the time-out.: Yes Procedure Operation Date: 04/04/23 11:50 Actual Procedures p Left Second Toe Amputation(Left) - Dax Jean-Baptiste DPM, MS Surgeon Dax Jean-Baptiste DPM, MS Escort Car Driver None Estimated Blood Loss 0 Findings Consistent with Post-Op Diagnosis Consistent with pre operative diagnosis
--- NOTE | 2023-04-04 12:55 | Operative Report ---
Post Operative Report Pre & Post Diagnosis Operation Date: 04/04/23 11:50 Pre-Op Diagnosis: Osteomyelitis Post-Op Diagnosis: Osteomyelitis I identified the patient and participated in the time-out.: Yes Procedure Operation Date: 04/04/23 11:50 Actual Procedures p Left Second Toe Amputation(Left) - Dax Jean-Baptiste DPM, MS Surgeon Dax Jean-Baptiste DPM, MS Marklogic Developer None Estimated Blood Loss 0 Findings Consistent with Post-Op Diagnosis Consistent with pre operative findings Specimens Left second toe - Micro Left second toe - Pathology Description of Procedure History of present illness: Patient is a 73 year old male who is seen for treatment of osteomyelitis of the left second toe. Patient relates minimal discomfort. I have discussed procedure in detail and postoperative recovery. All potential risks, benefits, complications, alternatives, rehab, potential for incomplete relief of symptoms, need for further surgery, DVT, PE, , persistent pain, swelling, scarring, weakness, neurovascular, wound complications and potential for amputations were discussed with patient. Unwanted outcomes such as, but not limited to were reviewed including under correction, overcorrection, return of deformity, infection. All questions were answered. Patient has decided to proceed with procedure as indicated. Preoperative diagnosis: Diabetic ulcer osteomyelitis distal and middle phalanx left second toe Postoperative diagnosis: same Name of operation: Amputation left second toe Surgeon Dr. Jean-Baptiste Marklogic Developer: None Anesthesia: local with monitored anesthesia care Hemostasis: pneumatic ankle tourniquet Estimated blood loss: minimal Procedure in detail: Under mild sedation the patient was brought in the operating room placed on the operating table in supine position. A pneumatic ankle tourniquet was then placed about the patient's left ankle. Following IV sedation local anesthesia was obtained about the left second toe utilizing 10 cc of 0.5% Marcaine plain. The foot was then prepped scrubbed and draped in usual aseptic manner. An Esmarch bandage was utilized to exsanguinate the patient's left foot and the pneumatic ankle tourniquet was then inflated. Attention was then directed to a nonhealing diabetic ulcer on the distal aspect of the left second toe. A fishmouth incision was created utilizing a sharp, sterile, #15 blade. The incision which was deepened through subcutaneous tissue using sharp blunt dissection. Care was taken to identify and retract all vital neurovascular structures. All bleeders were ligated and cauterized necessary. At this time the left second toe was removed at the proximal inter phalangeal joint and placed on the back table. The distal phalanx of the left second toe was sent to microbiology for cultures and sensitivities. The remainder of the amputated toe was sent to pathology. Copious amounts of sterile normal saline were utilized to flush the incision site. The skin was then primarily closed utilizing 4-0 nylon in horizontal suture mattress techniques as well as simple suture closure. Upon completion of the procedure the incision was dressed with Betadine soaked Adaptic followed by sterile compressive dressing consisting of 4 x 4's Amanda Kerlix ABD the pneumatic ankle tourniquet was inflated and a prompt hyperemic response was noted to all digits of the left foot. An Jamie wrap and postoperative shoe were then applied. The Patient tolerated the procedure and anesthesia well. He was transferred to recovery room vital signs stable. After a period of postoperative monitoring the patient will be re-admitted to the floor resuming pre-operative orders. I attest to the content of the Intraoperative Record and any orders documented therein. Any exceptions are noted below.
--- NOTE | 2023-04-04 14:17 | Hospitalist Progress Note ---
Date of Service April 04, 2023 Assessment & Plan (1) Osteomyelitis: Plan: This is a 73-year-old male who has significant past medical history of HTN, history of DVT on warfarin, CKD stage III, hypothyroidism, prediabetes, leukopenia and thrombocytopenia who presented to ED secondary to worsening left second toe wound. Patient presenting from home for evaluation of worsening left toe wound, redness, swelling Patient seen by PCP on 03/21 and placed on doxycycline. Seen in follow-up on 03/23 and MRI was ordered. Left foot MRI performed 03/26/2023 showing findings consistent with osteomyelitis of the 2nd distal phalanx, also involving the 2nd middle phalanx to a lesser degree. Consults were made with infectious disease and orthopedics. It was advised that patient see podiatry for wound debridement and/or amputation. Due to increased redness and swelling, patient presented to the ED today prior to podiatry appointment on 04/04. Outpatient wound culture grew coag negative staph S/p Vanco and cefepime in the ED, continue with both Podiatry consult - plan for OR today for amputation with Dr. Jean-Baptiste ID consulted - agree with IV vanco and cefepime for now. Would appreciate both a tissue and bone cx intraoperatively (bacterial and fungal) and will adjust abx accordingly (2) Bradycardia: Plan: EKG on admit shows a sinus bradycardia, rate 50 with first-degree block Review of outpatient vitals show the patient's heart rate chronically is in the 40s-50s Will reduce atenolol to 50 mg daily (3) Leukopenia: (4) Thrombocytopenia: Plan: History of chronic leukopenia and thrombocytopenia, follows with hematology Dr. Nicole Platelet count stable today at 126K Reviewed antiplatelet antibody panel from 07/[address] 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 -- ok to receive heparin products if needed (5) Neuropathy: Plan: Continue gabapentin (6) History of DVT (deep vein thrombosis): Plan: On Coumadin, INR 1.5 today History of DVT in 2014 Will hold Coumadin due to anticipated surgical procedure, no indication for bridging at this time (7) Hypertension: Plan: Will hold hctz tomorrow morning for procedure, resume tomorrow Reducing atenolol dosing as above (8) Pre-diabetes: Plan: Hgb A1c 6.0 02/2023 Glucose 136 on today's labs Monitor glucose on daily labs, provide Novolog if needed (9) Hypothyroidism: Plan: Continue levothyroxine DVT PROPHYLAXIS On Coumadin with INR 1.5, SCD to RLE I spent a total of 50 minutes coordinating, documenting, and providing care for this patient excluding time spent in the performance of separately billed services. Admission and Anticipated Discharge Date Admission Date: April 02, 2023 Supervising Physician Co-Signing Physician Notes Patient seen and examined at bedside as a follow-up of osteomyelitis of second toe of left foot, patient has been afebrile, warfarin on hold, for OR today per podiatry. On exam, patient was sitting up in bed, on room air, left second toe erythema/tenderness with associated with LLE swelling noted, rest of the examination as above.. I have seen and examined the patient and have discussed the case with the provider above. I agree with the assessment and plan as stated. Subjective Seen and examined in 354 bed 2. No new events overnight. Will be taken the OR soon for amputation of second right toe by podiatry. Patient with paresthesias in bilateral lower extremities. Denies any fever, chills, lightheadedness, chest pain, shortness of breath, nausea, vomiting, abdominal pain, dysuria, diarrhea or constipation. Review of Systems Review of Systems: At least ten systems reviewed and negative except as noted in the HPI. Physical Exam Physical Exam: Gen: WD/WN, NAD, A&Ox3 HEENT: Normocephalic, atraumatic, conjunctivae moist, sclerae anicteric, mucous membranes moist. Lung: Clear to Auscultation bilaterally, no wheezes/rales/rhonchi Heart: Regular rate, regular rhythm, no murmurs, rubs, or gallops Abdomen: Soft, NT, ND +BS x 4 Extremities: LLE edema, L 2nd toe with discoloration, wound ulceration and edema Skin: Warm, no rash Results & Data Results & Data Vital Signs (Past 12 Hours) Vital Signs Temp Pulse Pulse Resp BP BP Pulse Ox 04/04/23 13:40 56 L 17 147/80 H 95 04/04/23 13:15 53 L 14 157/94 H 97 04/04/23 13:25 36.2 C L 52 L 17 154/93 H 97 04/04/23 13:05 55 L 20 152/96 H 99 04/04/23 12:57 36.2 C L 58 L 18 148/87 H 98 04/04/23 11:29 36.7 C 46 L 20 175/93 H 98 04/04/23 07:57 36.4 C L 43 L 18 126/74 96 O2 Del Method O2 Flow Rate 04/04/23 13:40 Room Air 04/04/23 13:15 Nasal Cannula 2 04/04/23 13:25 Room Air 04/04/23 13:05 Nasal Cannula 2 04/04/23 12:57 Nasal Cannula 4 04/04/23 11:29 Room Air 04/04/23 07:57 Room Air Diagnostic Findings Chest X-Ray 04/02/23 11:14 XR chest 1V portable HISTORY: 73 years-old Male pre op preoperative exam. No acute chest complaints COMPARISON: CT abdomen and pelvis 08/08/2020 TECHNIQUE: AP view of the chest FINDINGS: Cardiac silhouette is mildly enlarged. No pneumothorax, pleural effusion, airspace consolidation or pulmonary edema. Degenerative changes of the shoulders and spine. IMPRESSION: No acute process. ACT 112: Negative or not required by law. The above report was generated using voice recognition software. It may contain grammatical, syntax or spelling errors. Electronically signed by: Beni Olsen M.D. 04/02/2023 12:00 PM
[2023-04-04] MEDS: WARFARIN SOD 5 MG TAB PO SCH (16:58)
--- NOTE | 2023-04-04 18:50 | Electrocardiogram Report ---
Test Reason : Blood Pressure : / mmHG Vent. Rate : 044 BPM Atrial Rate : 044 BPM P-R Int : 268 ms QRS Dur : 084 ms QT Int : 486 ms P-R-T Axes : 052 020 043 degrees QTc Int : 415 ms Marked sinus bradycardia with 1st degree A-V block Abnormal ECG When compared with ECG of 02-APR-2023 08:10, No significant change was found Confirmed by Kishan Tompkins ([id number]) on 04/04/2023 6:50:12 PM Referred By: REFERRED SELF Confirmed By:Heber Tompkins
[2023-04-05] MEDS: VANCOMYCIN HCL 1,750 MG in SODIUM CHLORIDE 0.9% 500 ML IV SCH ×2 (00:05→18:07)
[2023-04-05] MEDS: CEFEPIME 2,000 MG in SYRINGE 0 ML IV SCH ×3 (03:15→18:06)
[2023-04-05] MEDS: POLYETHYLENE (MIRALAX) 17 GM PACK PO PRN ×2 (03:15→20:16)
[2023-04-05] MEDS: LEVOTHYROXINE SODIUM 137 MCG TABLET PO SCH (05:50)
[2023-04-05] MEDS: hydroCHLOROthiazide 25 MG TAB PO SCH (08:38)
[2023-04-05] MEDS: ATENOLOL 50 MG TABLET PO SCH (08:38)
[2023-04-05] MEDS: GABAPENTIN 300 MG CAP PO SCH (08:39)
[2023-04-05 08:51] LABS: BUN Creatinine Ratio 15.3 (10-20); Calcium 8.9 mg/dl (8.6-10.3); Creatinine Clr Calc Pharmacy 70.4 ml/min; Est GFR (African American) 74.9 ml/min; Est GFR (Non-African American) 64.6 ml/min; Potassium 4.5 mmol/L (3.5-5.1)
[2023-04-05 09:10] LABS: INR 1.4 (0.9-1.1); Prothrombin Time 14.7 Seconds (9.0-12.0)
[2023-04-05 09:14] LABS: Hematocrit (blood only) 38.9 % (42.0-52.0); Hemoglobin 13.9 g/dl (14.0-18.0); Mean Corpuscular Hemoglobin 34.2 pg (25.0-34.0); Mean Corpuscular Hgb Conc 35.7 g/dL (32.0-36.0); Mean Corpuscular Volume 95.8 fL (80.0-100.0); Mean Platelet Volume 10.1 fL (9.4-12.4); Platelet Count 107 K/uL (130-400); RDW Coefficient of Variation 12.7 % (11.5-14.5); RDW Standard Deviation 44.6 fL (36.4-46.3); Red Blood Count 4.06 M/uL (4.70-6.10); White Blood Count 3.68 K/ul (4.8-10.8)
--- NOTE | 2023-04-05 14:47 | Hospitalist Progress Note ---
Date of Service April 05, 2023 Assessment & Plan (1) Osteomyelitis: Plan: This is a 73-year-old male who has significant past medical history of HTN, history of DVT on warfarin, CKD stage III, hypothyroidism, prediabetes, leukopenia and thrombocytopenia who presented to ED secondary to worsening left second toe wound. Patient seen by PCP on 03/21 and placed on doxycycline. Seen in follow-up on 03/23 and MRI was ordered Left foot MRI performed 03/26/2023 showing findings consistent with osteomyelitis of the 2nd distal phalanx, also involving the 2nd middle phalanx to a lesser degree. Consults were made with infectious disease and ortho Outpatient wound culture grew coag negative staph S/p Vanco and cefepime in the ED, continue with both POD#1 s/p 2nd toe amputation by Dr. Jean-Baptiste ID consulted - agree with IV vanco and cefepime for now. Intraoperative cultures pending (2) Bradycardia: Plan: EKG on admit shows a sinus bradycardia, rate 50 with first-degree block Review of outpatient vitals show the patient's heart rate chronically is in the 40s-50s Will reduce atenolol to 50 mg daily (3) Leukopenia: (4) Thrombocytopenia: Plan: History of chronic leukopenia and thrombocytopenia, follows with hematology Dr. Nicole Platelet count stable today at 126K Reviewed antiplatelet antibody panel from 07/[address] 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 -- ok to receive heparin products if needed (5) Neuropathy: Plan: Continue gabapentin (6) History of DVT (deep vein thrombosis): Plan: History of DVT in 2014 Coumadin resumed yesterday post-op, continue monitoring INR (7) Hypertension: Plan: Continue hctz, atenolol at reduced dosing as above (8) Pre-diabetes: Plan: Hgb A1c 6.0 02/2023 Glucose 136 on today's labs Monitor glucose on daily labs, provide Novolog if needed (9) Hypothyroidism: Plan: Continue levothyroxine DVT PROPHYLAXIS On Coumadin with INR 1.5, SCD to RLE I spent a total of 35 minutes coordinating, documenting, and providing care for this patient excluding time spent in the performance of separately billed services. Admission and Anticipated Discharge Date Admission Date: April 02, 2023 Supervising Physician Co-Signing Physician Notes Patient seen and examined at bedside as a follow-up of osteomyelitis of second toe of left foot, patient has been afebrile, warfarin on hold,s/p left 2nd toe amputation 04/04 per podiatry. await cx. On exam, patient was sitting up in bed, on room air, left second toe erythema/tenderness with associated with LLE swelling noted, rest of the examination as above.. I have seen and examined the patient and have discussed the case with the provider above. I agree with the assessment and plan as stated. Subjective Seen and examined in 354 bed 2. Feeling well following amputation of toe yesterday. Standing with boot in place. Patient with paresthesias in bilateral lower extremities. Denies any fever, chills, lightheadedness, chest pain, shortness of breath, nausea, vomiting, abdominal pain, dysuria, diarrhea or constipation. Review of Systems Review of Systems: At least ten systems reviewed and negative except as noted in the HPI. Physical Exam Physical Exam: Gen: WD/WN, NAD, A&Ox3 HEENT: Normocephalic, atraumatic, conjunctivae moist, sclerae anicteric, mucous membranes moist. Lung: Clear to Auscultation bilaterally, no wheezes/rales/rhonchi Heart: Regular rate, regular rhythm, no murmurs, rubs, or gallops Abdomen: Soft, NT, ND +BS x 4 Extremities: LLE edema, L foot with dressing c/d/i. Boot in place Skin: Warm, no rash Results & Data Results & Data Vital Signs (Past 12 Hours) Vital Signs Temp Pulse Resp BP Pulse Ox O2 Del Method 04/05/23 07:28 36.9 C 52 L 18 151/86 H 96 Room Air 04/05/23 03:22 36.7 C 54 L 18 153/90 H 93 Room Air Laboratory Results Short CBC 04/05/23 Range/Units 08:04 WBC 3.68 L (4.8-10.8) K/ul Hgb 13.9 L (14.0-18.0) g/dl Hct 38.9 L (42.0-52.0) % Plt Count 107 L (130-400) K/uL BMP 04/05/23 08:04 Sodium 137 Potassium 4.5 Chloride 106 Carbon Dioxide 26 BUN 17 Creatinine 1.11 Glucose 99 Calcium 8.9 Diagnostic Findings Chest X-Ray 04/02/23 11:14 XR chest 1V portable HISTORY: 73 years-old Male pre op preoperative exam. No acute chest complaints COMPARISON: CT abdomen and pelvis 08/08/2020 TECHNIQUE: AP view of the chest FINDINGS: Cardiac silhouette is mildly enlarged. No pneumothorax, pleural effusion, air space consolidation or pulmonary edema. Degenerative changes of the shoulders and spine. IMPRESSION: No acute process. ACT 112: Negative or not required by law. The above report was generated using voice recognition software. It may contain grammatical, syntax or spelling errors. Electronically signed by: Beni Olsen M.D. 04/02/2023 12:00 PM
[2023-04-05] MEDS: WARFARIN SOD 5 MG TAB PO SCH (16:03)
--- NOTE | 2023-04-05 22:10 | Orthopedic Progress Note ---
Date of Service April 05, 2023 Assessment & Plan (1) Osteomyelitis of second toe of left foot: Plan: Patient seen, evaluated, and treated Patient is status post Day #1 left second toe amputation DOS 04/05/23 Awaiting culture and sensitives. Thank you for allowing me to participate in the care of this Patient. (2) Osteomyelitis: Admission and Anticipated Discharge Date Admission Date: April 02, 2023 Subjective Patient seen and examined this evening. Patient is status post Day #1 left second toe amputation DOS 04/05/23. Patinet is standing with boot in place. Patient is present who helps with history and care. Review of Systems Review of Systems: All systems reviewed & are unremarkable except as noted in Subjective Physical Exam Constitutional: cooperative and comfortable Eyes: normal visual hardwick by confrontation Neck: trachea midline Respiratory: normal respiratory effort Cardiovascular: Rate/Rhythm: regular rate and regular rhythm Vessels: posterior tibial pulses present and dorsalis pedis pulses present Musculoskeletal: Extremities: extremities normal to inspection Skin: + ulcer (Left second distal toe) Neurologic: moves all extremities (Loss of epicritic sensation) Psychiatric: Orientation: alert and oriented x 3 Results & Data Vital Signs (Past 12 Hours) Vital Signs Temp Pulse Resp BP BP Pulse Ox O2 Del Method 04/05/23 21:52 36.8 C 50 L 18 152/73 H 97 Room Air 04/05/23 20:16 Room Air 04/05/23 16:02 36.7 C 49 L 18 144/84 H 92 Room Air
[2023-04-06] MEDS: CEFEPIME 2,000 MG in SYRINGE 0 ML IV SCH ×3 (01:43→18:21)
[2023-04-06] MEDS: LEVOTHYROXINE SODIUM 137 MCG TABLET PO SCH (05:50)
[2023-04-06 07:43] LABS: Hematocrit (blood only) 41.6 % (42.0-52.0); Hemoglobin 14.6 g/dl (14.0-18.0); Mean Corpuscular Hemoglobin 34.2 pg (25.0-34.0); Mean Corpuscular Hgb Conc 35.1 g/dL (32.0-36.0); Mean Corpuscular Volume 97.4 fL (80.0-100.0); Mean Platelet Volume 10.1 fL (9.4-12.4); Platelet Count 123 K/uL (130-400); RDW Coefficient of Variation 12.7 % (11.5-14.5); Red Blood Count 4.27 M/uL (4.70-6.10); White Blood Count 3.33 K/ul (4.8-10.8)
[2023-04-06 08:00] LABS: BUN Creatinine Ratio 17.8 (10-20); Calcium 9.4 mg/dl (8.6-10.3); Creatinine Clr Calc Pharmacy 66.2 ml/min; Est GFR (African American) 69.5 ml/min; Potassium 4.4 mmol/L (3.5-5.1)
[2023-04-06] MEDS: GABAPENTIN 300 MG CAP PO SCH (08:05)
[2023-04-06] MEDS: hydroCHLOROthiazide 25 MG TAB PO SCH (08:05)
[2023-04-06] MEDS: ATENOLOL 50 MG TABLET PO SCH (08:05)
[2023-04-06] MEDS: POLYETHYLENE (MIRALAX) 17 GM PACK PO PRN (08:05)
[2023-04-06 08:06] LABS: INR 1.3 (0.9-1.1); Prothrombin Time 14.4 Seconds (9.0-12.0)
--- NOTE | 2023-04-06 09:44 | Pharmacy Report ---
Pharmacy PK ABX Note - Date of Service April 06, 2023 - Assessment and Plan Assessment 04/06: Day #5 vancomycin. Renal function stable. Blood cultures (-) at 48h. 04/02 surface wound culture (toe) low counts mixed skin microbiota. 04/04 toe op culture (+) pin point growth and re-incubating. 04/04: 73 year old M receiving vancomycin/cefepime for treatment of L foot osteomyelitis. Left second toe amputation planned for today. Toe culture (04/02) with pin point growth. Plan Vancomycin * Current regimen: 1750 mg IV every 18 hours * Random level this AM- 15.4mcg/mL (13hr level) is therapeutic. Predicted to achieve a ssAUC 496mg/L.hr, and SS trough 13.4mg/L. * Continue vancomycin 1750mg IV q18h * Repeat level in ~48h or sooner if clinically indicated if patient continues on vancomycin. Pharmacy will continue to follow and will adjust dose/frequency as necessary. Thank you. Pharmacy has transitioned to AUC monitoring for vancomycin. AUC/BRITTNEY is the preferred PK/PD target and is associated with decreased risk of nephrotoxicity compared to traditional trough targets.
[2023-04-06] MEDS: VANCOMYCIN HCL 1,750 MG in SODIUM CHLORIDE 0.9% 500 ML IV SCH (11:40)
--- NOTE | 2023-04-06 15:02 | Hospitalist Progress Note ---
Date of Service April 06, 2023 Assessment & Plan (1) Osteomyelitis: Plan: This is a 73-year-old male who has significant past medical history of HTN, history of DVT on warfarin, CKD stage III, hypothyroidism, prediabetes, leukopenia and thrombocytopenia who presented to ED secondary to worsening left second toe wound. Patient seen by PCP on 03/21 and placed on doxycycline. Seen in follow-up on 03/23 and MRI was ordered Left foot MRI performed 03/26/2023 showing findings consistent with osteomyelitis of the 2nd distal phalanx, also involving the 2nd middle phalanx to a lesser degree. Consults were made with infectious disease and ortho Outpatient wound culture grew coag negative staph S/p Vanco and cefepime in the ED, continue with both POD#2 s/p 2nd toe amputation by Dr. Jean-Baptiste ID consulted - agree with IV vanco and cefepime for now. Intraoperative cultures pending (2) Bradycardia: Plan: EKG on admit shows a sinus bradycardia, rate 50 with first-degree block Review of outpatient vitals show the patient's heart rate chronically is in the 40s-50s Will reduce atenolol to 25 mg daily (3) Leukopenia: (4) Thrombocytopenia: Plan: History of chronic leukopenia and thrombocytopenia, follows with hematology Dr. Nicole Platelet count stable today at 126K Reviewed antiplatelet antibody panel from 07/[address] 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 -- ok to receive heparin products if needed (5) Neuropathy: Plan: Continue gabapentin (6) History of DVT (deep vein thrombosis): Plan: History of DVT in 2014 Coumadin resumed yesterday post-op, continue monitoring INR (7) Hypertension: Plan: Continue hctz, atenolol at reduced dosing as above (8) Pre-diabetes: Plan: Hgb A1c 6.0 02/2023 Glucose 136 on today's labs Monitor glucose on daily labs, provide Novolog if needed (9) Hypothyroidism: Plan: Continue levothyroxine DVT PROPHYLAXIS: On Coumadin with INR 1.3, SCD to RLE Admission and Anticipated Discharge Date Admission Date: April 02, 2023 Subjective Seen and examined in 354 bed 2. Feeling well following amputation of toe 04/04. sitting up in chair. Patient with paresthesias in bilateral lower extremities. Denies any fever, chills, lightheadedness, chest pain, shortness of breath, nausea, vomiting, abdominal pain, dysuria, diarrhea or constipation. Physical Exam Physical Exam: GENERAL: Alert and oriented x3. NAD, on RA. HEENT: No pallor, no icterus. Pupils equal, round and reactive to light. Oral mucosa moist. NECK: No JVD, no neck masses. HEART: S1 and S2 heard. Regular rate and rhythm. No murmur, no gallop. RESPIRATORY SYSTEM: Normal AP diameter. No accessory muscle use. No wheezing, no crackles. ABDOMEN: Soft, bowel sounds present, nontender, no distention. CENTRAL NERVOUS SYSTEM: No facial droop. Speech is clear. Obeys simple commands. Moves extremities. EXTREMITIES: No edema, no erythema seen. left foot 1+ edema; left foot w/ dressing c/d/i. Results & Data Results & Data Vital Signs (Past 12 Hours) Vital Signs Temp Pulse Resp BP Pulse Ox O2 Del Method 04/06/23 07:54 36.7 C 42 L 18 132/80 95 Room Air
[2023-04-06] MEDS: WARFARIN SOD 5 MG TAB PO SCH (16:53)
[2023-04-07] MEDS: CEFEPIME 2,000 MG in SYRINGE 0 ML IV SCH ×3 (01:55→18:02)
[2023-04-07] MEDS: VANCOMYCIN HCL 1,750 MG in SODIUM CHLORIDE 0.9% 500 ML IV SCH (05:45)
[2023-04-07] MEDS: LEVOTHYROXINE SODIUM 137 MCG TABLET PO SCH (05:49)
[2023-04-07 07:33] LABS: Hematocrit (blood only) 41.3 % (42.0-52.0); Hemoglobin 14.5 g/dl (14.0-18.0); Mean Corpuscular Hemoglobin 34.2 pg (25.0-34.0); Mean Corpuscular Hgb Conc 35.1 g/dL (32.0-36.0); Mean Corpuscular Volume 97.4 fL (80.0-100.0); Mean Platelet Volume 9.9 fL (9.4-12.4); Platelet Count 122 K/uL (130-400); RDW Coefficient of Variation 12.5 % (11.5-14.5); RDW Standard Deviation 44.8 fL (36.4-46.3); Red Blood Count 4.24 M/uL (4.70-6.10)
[2023-04-07 07:51] LABS: Calcium 9.6 mg/dl (8.6-10.3); Est GFR (African American) 71.7 ml/min; Est GFR (Non-African American) 61.9 ml/min; Phosphorus 2.6 mg/dl (2.5-4.9); Potassium 4.4 mmol/L (3.5-5.1)
[2023-04-07 07:59] LABS: INR 1.3 (0.9-1.1); Prothrombin Time 14.3 Seconds (9.0-12.0)
[2023-04-07] MEDS ORDERED: WARFARIN SOD 3 MG TAB PO ONE (08:18)
[2023-04-07] MEDS: hydroCHLOROthiazide 25 MG TAB PO SCH (08:34)
[2023-04-07] MEDS: GABAPENTIN 300 MG CAP PO SCH (08:34)
[2023-04-07] MEDS: ATENOLOL 25 MG TABLET PO SCH (08:35)
[2023-04-07] MEDS ORDERED: FUROSEMIDE INJ 20 MG/2 ML VIAL IV ONE (13:13)
--- NOTE | 2023-04-07 13:13 | Hospitalist Progress Note ---
Date of Service April 07, 2023 Assessment & Plan (1) Osteomyelitis: Plan: This is a 73-year-old male who has significant past medical history of HTN, history of DVT on warfarin, CKD stage III, hypothyroidism, prediabetes, leukopenia and thrombocytopenia who presented to ED secondary to worsening left second toe wound. Patient seen by PCP on 03/21 and placed on doxycycline. Seen in follow-up on 03/23 and MRI was ordered Left foot MRI performed 03/26/2023 showing findings consistent with osteomyelitis of the 2nd distal phalanx, also involving the 2nd middle phalanx to a lesser degree. Consults were made with infectious disease and ortho Outpatient wound culture grew coag negative staph S/p Vanco and cefepime in the ED, continue with both POD#3 s/p 2nd toe amputation by Dr. Jean-Baptiste ID consulted - agree with IV vanco and cefepime for now. Intraoperative cultures pending (2) Bradycardia: Plan: EKG on admit shows a sinus bradycardia, rate 50 with first-degree block Review of outpatient vitals show the patient's heart rate chronically is in the 40s-50s c/w reduced atenolol 25 mg daily for now. (3) Leukopenia: (4) Thrombocytopenia: Plan: History of chronic leukopenia and thrombocytopenia, follows with hematology Dr. Nicole Platelet count stable above 100k lately Reviewed antiplatelet antibody panel from 07/[address] 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 (7) Hypertension: Plan: Continue hctz, atenolol at reduced dosing as above (8) Pre-diabetes: Plan: Hgb A1c 6.0 02/2023 Glucose 136 on today's labs Monitor glucose on daily labs, provide Novolog if needed (9) Hypothyroidism: Plan: Continue levothyroxine DVT PROPHYLAXIS: On Coumadin , SCD to RLE Admission and Anticipated Discharge Date Admission Date: April 02, 2023 Subjective Seen and examined in 354 bed 2. Feeling well following amputation of toe 04/04. sitting up in chair. Patient with paresthesias in bilateral lower extremities. Denies any fever, chills, lightheadedness, chest pain, shortness of breath, nausea, vomiting, abdominal pain, dysuria, diarrhea or constipation. Physical Exam Physical Exam: GENERAL: Alert and oriented x3. NAD, on RA. HEENT: No pallor, no icterus. Pupils equal, round and reactive to light. Oral mucosa moist. NECK: No JVD, no neck masses. HEART: S1 and S2 heard. Regular rate and rhythm. No murmur, no gallop. RESPIRATORY SYSTEM: Normal AP diameter. No accessory muscle use. No wheezing, no crackles. ABDOMEN: Soft, bowel sounds present, nontender, no distention. CENTRAL NERVOUS SYSTEM: No facial droop. Speech is clear. Obeys simple commands. Moves extremities. EXTREMITIES: No edema, no erythema seen. left foot 1+ edema; left foot w/ dressing c/d/i. Results & Data Results & Data Vital Signs (Past 12 Hours) Vital Signs Temp Pulse Resp BP Pulse Ox O2 Del Method 04/07/23 07:16 36.6 C 47 L 18 154/77 H 97 Room Air
--- NOTE | 2023-04-07 14:52 | Orthopedic Progress Note ---
Date of Service April 07, 2023 Assessment & Plan (1) Osteomyelitis of second toe of left foot: Plan: Patient seen, evaluated, and treated Patient is status post Day #3 left second toe amputation DOS 04/05/23 Awaiting culture and sensitives. Thank you for allowing me to participate in the care of this Patient. (2) Osteomyelitis: Admission and Anticipated Discharge Date Admission Date: April 02, 2023 Subjective Patient seen and examined at bedside. Patient . Patient with paresthesias in bilateral lower extremities. Denies any fever, chills, lightheadedness, chest pain, shortness of breath, nausea, vomiting, abdominal pain, dysuria, diarrhea or constipation. Physical Exam Constitutional: cooperative and comfortable Eyes: normal visual hardwick by confrontation Neck: trachea midline Respiratory: normal respiratory effort Cardiovascular: Rate/Rhythm: regular rate and regular rhythm Vessels: posterior tibial pulses present and dorsalis pedis pulses present Musculoskeletal: Extremities: extremities normal to inspection (Absent left second digit secondary to surgical care.) Neurologic: moves all extremities (Loss of epicritic sensation) Psychiatric: Orientation: alert and oriented x 3 Results & Data Vital Signs (Past 12 Hours) Vital Signs Temp Pulse Resp BP Pulse Ox O2 Del Method 04/07/23 07:16 36.6 C 47 L 18 154/77 H 97 Room Air
[2023-04-07] MEDS: WARFARIN SOD 5 MG TAB PO SCH (16:33)
[2023-04-08] MEDS: VANCOMYCIN HCL 1,750 MG in SODIUM CHLORIDE 0.9% 500 ML IV SCH (01:04)
[2023-04-08] MEDS: CEFEPIME 2,000 MG in SYRINGE 0 ML IV SCH (03:14)
[2023-04-08] MEDS: LEVOTHYROXINE SODIUM 137 MCG TABLET PO SCH (05:37)
[2023-04-08 07:24] LABS: INR 1.4 (0.9-1.1); Prothrombin Time 15.4 Seconds (9.0-12.0)
[2023-04-08] MEDS: hydroCHLOROthiazide 25 MG TAB PO SCH (08:41)
[2023-04-08] MEDS: ATENOLOL 25 MG TABLET PO SCH (08:41)
[2023-04-08] MEDS: GABAPENTIN 300 MG CAP PO SCH (08:42)
[2023-04-08] MEDS ORDERED: ceFAZolin 2000MG 2,000 MG/15 ML SYR IV SCH (09:00)
[2023-04-08] MEDS ORDERED: WARFARIN SOD 3 MG TAB PO ONE (09:00)
--- NOTE | 2023-04-08 13:02 | Hospitalist Progress Note ---
Date of Service April 08, 2023 Assessment & Plan (1) Osteomyelitis: Plan: This is a 73-year-old male who has significant past medical history of HTN, history of DVT on warfarin, CKD stage III, hypothyroidism, prediabetes, leukopenia and thrombocytopenia who presented to ED secondary to worsening left second toe wound. Patient seen by PCP on 03/21 and placed on doxycycline. Seen in follow-up on 03/23 and MRI was ordered Left foot MRI performed 03/26/2023 showing findings consistent with osteomyelitis of the 2nd distal phalanx, also involving the 2nd middle phalanx to a lesser degree. Consults were made with infectious disease and ortho Outpatient wound culture grew coag negative staph S/p Vanco and cefepime in the ED, Operative Cx w/ CONS not lugdunensis --> discussed the finding w/ ID, plan for vanco for 6 weeks as CONS less likely to cause OM. Follow up with ID at [place] in 3 weeks. POD#4 s/p 2nd toe amputation by Dr. Jean-Baptiste Will get PICC line, will write script for vanc. End date may 19, 2023. (2) Bradycardia: Plan: EKG on admit shows a sinus bradycardia, rate 50 with first-degree block Review of outpatient vitals show the patient's heart rate chronically is in the 40s-50s DC atenolol on Discharge, if BP elevates (currently fairly nl), consider adding other BP med. f/u w/ PCP for watermelon inspector monitoring. (3) Leukopenia: (4) Thrombocytopenia: Plan: History of chronic leukopenia and thrombocytopenia, follows with hematology Dr. Nicole Platelet count stable above 100k lately Reviewed antiplatelet antibody panel from 07/[address] 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 coumadin clinic on DC. (7) Hypertension: Plan: Continue hctz, atenolol dc'd d/t bradycardia. (8) Pre-diabetes: Plan: Hgb A1c 6.0 02/2023 Monitor glucose on daily labs, provide Novolog if needed (9) Hypothyroidism: Plan: Continue levothyroxine DVT PROPHYLAXIS: On Coumadin , SCD to [facility] Admission and Anticipated Discharge Date Admission Date: April 02, 2023 Subjective Seen and examined in 354 bed 2. Feeling well following amputation of toe 04/04. sitting up in chair. Patient with paresthesias in bilateral lower extremities. Denies any fever, chills, lightheadedness, chest pain, shortness of breath, nausea, vomiting, abdominal pain, dysuria, diarrhea or constipation. Physical Exam Physical Exam: GENERAL: Alert and oriented x3. NAD, on RA. HEENT: No pallor, no icterus. Pupils equal, round and reactive to light. Oral mucosa moist. NECK: No JVD, no neck masses. HEART: S1 and S2 heard. Regular rate and rhythm. No murmur, no gallop. RESPIRATORY SYSTEM: Normal AP diameter. No accessory muscle use. No wheezing, no crackles. ABDOMEN: Soft, bowel sounds present, nontender, no distention. CENTRAL NERVOUS SYSTEM: No facial droop. Speech is clear. Obeys simple commands. Moves extremities. EXTREMITIES: No edema, no erythema seen. left foot 1+ edema; left foot w/ dressing c/d/i. Results & Data Results & Data Vital Signs (Past 12 Hours) Vital Signs Temp Pulse Resp BP Pulse Ox O2 Del Method 04/08/23 07:29 36.3 C L 51 L 16 140/83 97 Room Air
[2023-04-08] MEDS: WARFARIN SOD 5 MG TAB PO SCH (17:03)
[2023-04-08] MEDS: VANCOMYCIN HCL 1,250 MG in SODIUM CHLORIDE 0.9% 250 ML IV SCH (18:28)
[2023-04-09] MEDS: VANCOMYCIN HCL 1,250 MG in SODIUM CHLORIDE 0.9% 250 ML IV SCH (05:27)
[2023-04-09] MEDS: LEVOTHYROXINE SODIUM 137 MCG TABLET PO SCH (05:29)
[2023-04-09] MEDS ORDERED: VANCOMYCIN LEVEL ONE (05:30)
[2023-04-09 05:48] LABS: Hematocrit (blood only) 39.9 % (42.0-52.0); Hemoglobin 14.1 g/dl (14.0-18.0); Mean Corpuscular Hemoglobin 34.4 pg (25.0-34.0); Mean Corpuscular Hgb Conc 35.3 g/dL (32.0-36.0); Mean Corpuscular Volume 97.3 fL (80.0-100.0); Mean Platelet Volume 10.2 fL (9.4-12.4); Platelet Count 129 K/uL (130-400); RDW Coefficient of Variation 12.6 % (11.5-14.5); RDW Standard Deviation 44.8 fL (36.4-46.3); White Blood Count 3.65 K/ul (4.8-10.8)
[2023-04-09 06:00] LABS: BUN Creatinine Ratio 25.2 (10-20); Calcium 9.6 mg/dl (8.6-10.3); Creatinine Clr Calc Pharmacy 59.7 ml/min; Est GFR (African American) 61.3 ml/min; Est GFR (Non-African American) 52.9 ml/min; Potassium 4.1 mmol/L (3.5-5.1)
[2023-04-09 06:14] LABS: INR 1.8 (0.9-1.1); Prothrombin Time 18.7 Seconds (9.0-12.0)
[2023-04-09] MEDS: hydroCHLOROthiazide 25 MG TAB PO SCH (09:26)
[2023-04-09] MEDS: GABAPENTIN 300 MG CAP PO SCH (09:26)
[2023-04-09] MEDS: ATENOLOL 25 MG TABLET PO SCH (09:26)
--- NOTE | 2023-04-09 14:58 | Discharge Summary ---
Date of Service April 09, 2023 Admission HPI Per Admitting Provider 73-year-old male with PMH hypothyroidism, prediabetes, HTN, peripheral neuropathy, chronic thrombocytopenia and leukopenia, history of DVT anticoagulated on Coumadin, and other problems listed below who presents to the ED for evaluation of a left toe wound. History obtained from the patient and review of outpatient PCP and hematology records. Patient states that about 2 weeks ago, he developed a blister or callus on the bottom of his left second toe. Patient states that he peeled the skin off of the bottom of his left second toe. Then developed increased redness and swelling. Patient seen by PCP on 03/21 and placed on doxycycline. Seen in follow-up on 03/23 and MRI was ordered. Left foot MRI performed 03/26/2023 showing findings consistent with osteomyelitis of the 2nd distal phalanx, also involving the 2nd middle phalanx to a lesser degree. Consults were made with infectious disease and orthopedics. It was advised that patient see podiatry for wound debridement and/or amputation. Due to increased redness and swelling, patient presented to the ED today prior to podiatry appointment on 04/04. Patient reports chronic neuropathy to both feet. History of prediabetes. He denies fevers and chills. No chest pain or shortness of breath. Denies lightheadedness, dizziness, diaphoresis, syncopal events. No abdominal pain, nausea, vomiting, diarrhea. Denies urinary symptoms. In the ED today, patient is hemodynamically stable. Labs show mild leukopenia and thrombocytopenia, WBC 3.8K platelet 126K. Patient was given IV cefepime and IV Vanco. Admission Exam Per Admitting Provider Constitutional: WD/WN, vitals as above no acute distress ENMT: external ear and nose normal, oropharynx normal Respiratory: normal respiratory effort, lungs clear to auscultation Cardiovascular: Rate/Rhythm: regular rhythm and + bradycardic Vessels: normal peripheral pulses Extremities: + edema (+2 edema LLE) Gastrointestinal (Abdomen): normal bowel sounds, soft, nontender, no hepatosplenomegaly Musculoskeletal: no cyanosis or clubbing, extremities motor strength 5/5 Skin: no rashes, warm and dry open wound noted to end of left 2nd toe with some bloody drainage present, associated erythema and edema Neurologic: PERRL, EOMI, accommodation nl, no face palsy, no dysarthria Psychiatric: A+Ox3, euthymic affect Principal Diagnosis Osteomyelitis Bradycardia Discharge Exam GENERAL: Alert and oriented x3. NAD, on RA. HEENT: No pallor, no icterus. Pupils equal, round and reactive to light. Oral mucosa moist. NECK: No JVD, no neck masses. HEART: S1 and S2 heard. Regular rate and rhythm. No murmur, no gallop. RESPIRATORY SYSTEM: Normal AP diameter. No accessory muscle use. No wheezing, no crackles. ABDOMEN: Soft, bowel sounds present, nontender, no distention. CENTRAL NERVOUS SYSTEM: No facial droop. Speech is clear. Obeys simple commands. Moves extremities. EXTREMITIES: No edema, no erythema seen. left foot 1+ edema; left foot w/ dressing c/d/i. Discharge Data Allergies Allergy/AdvReac Type Severity Reaction Status Date / Time No Known Allergies Allergy Unknown Unverified 11/16/03 06:48 Consultations 04/02/23 09:55 ED Decision to Admit Stat 04/02/23 12:19 Consult Infectious Diseases Routine Consult Podiatry Routine 04/03/23 14:29 Consult Anesthesiology Routine Procedures Performed Operation Date: 04/04/23 11:50 Actual Procedures p Left Second Toe Amputation(Left) - Dax Jean-Baptiste DPM, [place] Hospital Course (1) Osteomyelitis: This is a 73-year-old male who has significant past medical history of HTN, history of DVT on warfarin, CKD stage III, hypothyroidism, prediabetes, leukopenia and thrombocytopenia who presented to ED secondary to worsening left second toe wound. Patient seen by PCP on 03/21 and placed on doxycycline. Seen in follow-up on 03/23 and MRI was ordered Left foot MRI performed 03/26/2023 showing findings consistent with osteomyelitis of the 2nd distal phalanx, also involving the 2nd middle phalanx to a lesser degree. Consults were made with infectious disease and ortho Outpatient wound culture grew coag negative staph S/p Vanco and cefepime in the ED, Operative Cx w/ CONS not lugdunensis --> discussed the finding w/ ID 04/08, plan for vanco for 6 weeks as CONS less likely to cause OM. Follow up with ID at [place] in 3 weeks. Pt aware. POD#5 s/p 2nd toe amputation by Dr. Jean-Baptiste c/w Vanc, picc line in, End date may 19, 2023 for iv vanc. (2) Bradycardia: EKG on admit shows a sinus bradycardia, rate 50 with first-degree block Review of outpatient vitals show the patient's heart rate chronically is in the 40s-50s DC'd atenolol on Discharge, pt to maintain log of bp measurements to take to pcp office for terminal gauger mx of his bp, pt aware. f/u w/ PCP for skilled nursing monitoring. (3) Leukopenia: (4) Thrombocytopenia: History of chronic leukopenia and thrombocytopenia, follows with hematology Dr. Nicole Platelet count stable above 100k lately Reviewed antiplatelet antibody panel from 07/[address] 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 coumadin clinic on DC. (7) Hypertension: Continue hctz, atenolol dc'd d/t bradycardia. (8) Pre-diabetes: Hgb A1c 6.0 02/2023 Monitor glucose on daily labs, provide Novolog if needed (9) Hypothyroidism: Continue levothyroxine DVT PROPHYLAXIS: On Coumadin , SCD to [facility] Plan Patient being discharged home with home health with following instruction at the point of discharge: Follow-up with your primary care physician within a week time and likely you w ill need labs CBC/CMP/magnesium/phosphorus. Follow-up with your construction project assistant in 7 to 10 days time upon discharge. Follow-up with infectious disease doctor in 2-3 weeks time upon discharge. You are being discharged on vancomycin for your osteomyelitis of left lower extremity. Due to your bradycardia while in the hospital, your home atenolol dose has been stopped. As discussed at the bedside, measure your blood pressure twice a day and maintain a log to take to your primary care physician for evaluation to aid with long-term management of your blood pressure. Follow-up with Coumadin clinic in 3 days, for PT/INR check and follow recommendation from Coumadin clinic. Take your medications as prescribed. Please make sure that you are able to get your medications today by calling your pharmacy before you leave the hospital so that your treatment continuity is not broken. Home Health Attestation I certify that this patient is under my care and that I, or a physicians marketing operations assistant working with me, had a face to-face encounter that meets the home health [id number] encounter requirements with this patient. The encounter with the patient was in whole, or in part, for the following medical condition, which is the primary reason for home health care (list medical condition): I certify that, based on my findings, the following services are medically necessary home health services: My clinical findings support the need for the above services because: Further, I certify that my clinical findings support that this patient is homebound (i.e. absences from home require considerable and taxing effort and are for medical reasons or taoism services or infrequently or of short duration when for other reasons) because: Certification for Home Health Services: Based on the above findings, I certify that this patient is confined to the home and needs intermittent half-way care, physical therapy and/or speech therapy or continues to need occupational therapy. The patient is under my care, and I have initiated the establishment of the plan of care. This patient will be followed by a physician who will periodically review the plan of care. Total Time Total Time Spent Total Time Spent (In Minutes): 45 Discharge Plan Discharge Items Patient Disposition: Home - Home Health Services Reason For Visit: OSTEOMYELITIS Discharge Diagnosis: Osteomyelitis Bradycardia Activity: As commented below Activity Comment: As per construction project assistant recommendation. Non-emergency contact: Primary Care Provider Call non-emergency contact if: you have any medication questions, your symptoms worsen and your temperature is above 101 Follow-up/Referrals: Salima Arevalo PA-C [Primary Care Provider] - (Date & Time 04/11/2023 3:00 PM Provider Salima Arevalo PA-C Department [facility] ) Diet: Heart Healthy Addtl Attending Provider Instructions: Follow-up with your primary care physician within a week time and likely you will need labs CBC/CMP/magnesium/phosphorus. Follow-up with your construction project assistant in 7 to 10 days time upon discharge. Follow-up with infectious disease doctor in 2-3 weeks time upon discharge. You are being discharged on vancomycin for your osteomyelitis of left lower extremity. Due to your bradycardia while in the hospital, your home atenolol dose has been stopped. As discussed at the bedside, measure your blood pressure twice a day and maintain a log to take to your primary care physician for evaluation to aid with long-term management of your blood pressure. Follow-up with Coumadin clinic in 3 days, for PT/INR check and follow recommendation from Coumadin clinic. Take your medications as prescribed. Please make sure that you are able to get your medications today by calling your pharmacy before you leave the hospital so that your treatment continuity is not broken. Pending Studies at Discharge: No Stand-Alone Forms: My [facility], Smoking Cessation Medications and DC Order Prescriptions: New vancomycin 1.25 gram recon soln 1.25 g IV Q12H Qty: 84 0RF Continued levothyroxine 137 mcg tablet 137 mcg PO DAILY warfarin 5 mg tablet 5 mg PO SUMOTUTHFRSA warfarin 5 mg tablet 7.5 mg PO WE gabapentin 300 mg capsule 300 mg PO DAILY hydrochlorothiazide 25 mg tablet 25 mg PO DAILY Discontinued atenolol 100 mg tablet 100 mg PO DAILY Discharge Orders: Discharge Order (Routine); Ordered 04/09/23 Ordered By: Bassam Cedeno/Other Patient Handouts: Prediabetes, 5 Steps for Eating Healthier Admission Data Admit Date/Time: 04/02/23 10:09 Attending Provider: Bassam Alarcon Admit Provider: Sindy Kaur Primary Care Provider: Salima Arevalo Other Providers: Edith Garcia ; Sindy Kaur ; Hernan Johnson ; Florencia Daly ; Shine Garcia I. ; Joshua Cruz II ; Nahed Oneill ; Arden Titus ; Jose Sultana ; Chris Stack ; Dax Jean-Baptiste ; Vincent Hoffmann ; [employer]
[2023-04-09] MEDS: WARFARIN SOD 5 MG TAB PO SCH (15:17)
[2023-04-09] MEDS ORDERED: VANCOMYCIN HCL 1,000 MG in SODIUM CHLORIDE 0.9% 250 ML IV SCH (18:00)
[2023-04-10] MEDS ORDERED: VANCOMYCIN LEVEL ONE (05:30)
--- NOTE | 2023-04-10 08:07 | Coding Query ---
CODING QUERY To promote full compliance with coding requirements relating to patient care, provider participation is requested in all cases of remote medical coder uncertainty. Please assist us with the question(s) below: Coding Question(s): Please clarify conflicting documentation contained in the medical record. Prediabetes - Discharge summary, H&P, Progress notes Aniya Alarcon and Vincent Diabetes type 2 - Orthopedic consultation 04/02 Dr Jean-Baptiste Diabetic ulcer - Operative report 04/04 Dr Jean-Baptiste Based on your medical judgement, can you further clarify which of these conditions is the most correct. Physician's Response(s): Prediabetes Thank you Iliana VORA
[2023-04-10] MEDS ORDERED: WARFARIN SOD 7.5 MG TAB PO SCH (16:00)
--- NOTE | 2023-04-14 00:07 | Anesthesiology Progress Note ---
Date of Service April 14, 2023 Anesthesia Post Procedure Pain Intensity Left 2nd Digit Toe: Pain Intensity: 0 Transfer of Care Handoff Completed per policy Notes Mental Status: alert / awake / arousable and participated in evaluation Patient Amnestic to Procedure: Yes Nausea / Vomiting: adequately controlled Pain: adequately controlled Airway Patency, RR, SpO2: stable & adequate BP & HR: stable & adequate Hydration State: stable & adequate Anesthetic Complications: no major complications apparent and Pt Satisfied with anesthetic care Notes: late entry. patient seen prior to d/c
== END 2023-04-09 16:06 | disposition home health service (06) | DRG 504 ==
LOC: ED 07:31 → 3W 10:09 → SUATTDRO 10:09 → 3W 11:15